=== PATIENT | male | born 1955 | race Caucasian/White ===

== ENCOUNTER 2017-05-25 16:35 | Inpatient (IN) ==
[2017-05-25] MEDS ORDERED: Piperacillin/Tazobactam 4.5 GM in D5% in Water (Mini-Bag+) 100 ML IVPB ONE (19:26)
[2017-05-25] MEDS ORDERED: Clindamycin 600 MG/50 ML 600 MG/50 ML IV.SOLN IVPB STA (19:46)
[2017-05-25 19:56] LABS: Basophils % 0.2 %; Eosinophils % 0.6 %; Immature Granulocytes % 1.5 % (0-4); Mean Corpuscular HGB Conc 28.9 g/dL (31.6-35.5)
[2017-05-25 19:58] LABS: Eosinophils # 0.1 K/mcL (0.0-0.6); Hematocrit 27.7 % (37.5-50.1); Lymphocytes # 0.9 K/mcL (0.6-4.6); Lymphocytes % 8.9 %; Mean Corpuscular Hemoglobin 25.5 pg (28.0-33.3); Mean Corpuscular Volume 88.2 fL (83.0-100.0); Mean Platelet Volume 10.4 fL (9.4-12.4); Monocytes # 0.5 K/mcL (0.0-1.3); Monocytes % 5.4 %; Platelet Count 179 K/mcL (140-400); Red Blood Count 3.14 M/mcL (4.19-5.50); Red Cell Distribution Width 19.2 % (11.5-14.5); Segmented Neutrophils % 83.4 %
[2017-05-25] MEDS ORDERED: Vancomycin 1,500 MG in D5% in Water 250 ML IVPB SCH (20:00)
[2017-05-25 20:04] LABS: Albumin 2.1 g/dL (3.5-5.0); Albumin/Globulin Ratio 0.4 (1.1-2.2); Bilirubin,Direct 1.2 mg/dL (0.0-0.5); Bilirubin,Indirect 0.5 mg/dL (0.0-1.2); Bilirubin,Total 1.7 mg/dL (0.2-1.2); Calcium 8.4 mg/dL (8.6-10.8); Globulin 5.1 g/dL (2.4-3.5); Magnesium 1.6 mg/dL (1.6-2.6); Phosphorous 2.6 mg/dL (2.3-4.7); Potassium 2.7 mEq/L (3.5-4.5); Total Protein 7.2 g/dL (6.0-8.3)
[2017-05-25 20:19] LABS: Hypochromasia Present (Not Present)
[2017-05-25 20:20] LABS: Anisocytosis 1+ (Not Present); Platelet Estimate Normal (Normal)
[2017-05-25 20:29] LABS: ABG Base Excess 12.8 mEq/L (-2.0 to 3.0); ABG HCO3 35.2 mEQ/L (21-27); ABG Oxygen Saturation 98 % (95-98); ABG PCO2 35 mmHg (35-45); ABG PO2 86 mmHg (85-104); ABG TCO2 36.3 mEq/L (20-26)
[2017-05-25 20:30] LABS: Blood Gas FiO2 21 %
[2017-05-25 20:31] LABS: ABG PH 7.61 pH Units (7.32-7.45)
[2017-05-25] MEDS: 0.9 % Sodium Chloride 1,000 ML IVC SCH ×2 (20:33→23:48)
[2017-05-25 20:37] LABS: INR 1.6; Prothrombin Time 17.6 Seconds (9.4-12.1)
[2017-05-25 20:40] LABS: Activated Partial Thrombo Time 28.5 Seconds (26.0-36.0)
--- NOTE | 2017-05-25 21:27 | Emergency Department Note ---
Disposition Clinical Impression: Diabetic ulcer of foot associated with type 2 diabetes mellitus, with necrosis of bone Qualifiers: Diabetic foot ulcer location: heel Laterality: unspecified laterality Qualified Code(s): E11.621 - Type 2 diabetes mellitus with foot ulcer Disposition: Home, Self-Care Condition: Good Referrals: NO,PCP [Primary Care Provider] - Forms: ED Satisfaction Letter Extremity Problem HPI - General Chief complaint: ED Extremity Problem,Nontraumatic Stated complaint: wounds on bilat feet Time Seen by Provider: 05/25/17 19:20 Source: patient, family Limitations: no limitations Nursing Notes Reviewed: Yes Vital Signs Reviewed: Yes - History of Present Illness HPI Narrative: Male patient with end-stage renal disease as well as diabetes with chronic diabetic ulcers to the feet. Now presents with concern for necrosis to the heels bilaterally. His vital signs are stable on arrival. His family reports that his feet have been getting worse over the past week. He does follow with a sedimentationist at [facility]. He denies chest pain, dyspnea, lower extremity pain. He has had duplex is performed previously to evaluate for vascular insult. Pain Scale: 0 - Related Data Home Medications Medication Instructions Recorded Confirmed Doxycycline [Doxycycline] 100 mg PO BID 05/25/17 05/25/17 Lidocaine/Prilocaine [Emla] 1 appl TP AD PRN 05/25/17 05/25/17 Allergies Allergy/AdvReac Type Severity Reaction Status Date / Time vancomycin Allergy See Verified 04/29/16 06:56 Comments All systems ED: reviewed and negative except as stated. Past Medical History - Past Medical History Medical history: Reports: diabetes, hypertension, other Surgical history: Reports: coronary bypass (CABG), other Psychiatric history: Reports: anxiety, depression - Social History Smoking Status: Former smoker Smokeless Tobacco Status: No Alcohol use: Reports: none Drug use: Reports: none Physical Exam There is necrosis in a circular fashion over both feet at the heels.. There is ulcers on the feet. - General Limitations: no limitations General appearance: alert, in no apparent distress - Head Head exam: atraumatic - Eye Eye exam: Present: normal appearance - ENT ENT exam: normal exam, normal oropharynx - Neck Neck exam: Present: normal inspection, full ROM - Chest Chest inspection: Present: normal inspection - Respiratory Respiratory exam: Present: normal lung sounds bilaterally - Cardiovascular Cardiovascular exam: Present: regular rate, normal rhythm - Abdominal Exam Abdominal exam: Present: soft, Non-Tender - Male exam: Present: normal inspection - Extremities Exam Extremities exam: Present: normal inspection, full ROM - Expanded Lower Extremity Exam Hip/Pelvis exam: Present: normal inspection, full ROM Upper leg exam: Present: normal inspection, full ROM Knee exam: Present: normal inspection, full ROM Lower leg exam: Present: normal inspection, full ROM Ankle exam: Present: normal inspection, full ROM Foot/toe exam: Present: normal inspection, full ROM Neurovascular/Tendon exam: Present: normal capillary refill, pulse deficit Gait: observed and normal, not tested/not observed - Back Exam Back exam: Present: normal inspection, full ROM - Neurological Exam Neurological exam: Present: alert, oriented X3, CN II-XII intact - Psychiatric Psychiatric exam: Present: normal affect, normal mood - Skin Skin exam: Present: warm, dry Course Vital Signs Temperature 98.2 F 05/25/17 16:52 Pulse Rate 82 05/25/17 16:52 Respiratory Rate 18 05/25/17 16:52 Blood Pressure 125/58 05/25/17 16:52 O2 Sat by Pulse Oximetry 99 05/25/17 16:52 Temperature 98.2 F 05/25/17 16:52 Pulse Rate 84 05/25/17 20:36 Respiratory Rate 18 05/25/17 20:36 Blood Pressure 138/69 05/25/17 20:36 O2 Sat by Pulse Oximetry 97 05/25/17 20:36 Oxygen Delivery Oxygen Delivery Room Air Extremity Problem, Nontraumati - MDM Narrative Medical decision making narrative: Male patient with necrotic and possibly gangrenous heels bilaterally. There are Doppler pulses present over the dorsalis pedis and posterior tibial. X-ray show evidence of osteomyelitis of the toe. There is no evidence of gas or air. I did discuss the case with the on-call sedimentationist. I did start broad- spectrum antibiotics. He was given IV fluids for significant contracture alkalosis. He does have hypokalemia and I did correct this gently given his underlying renal dysfunction. I would proceed with admission for evaluation of both sepsis as well as necrosis to the lower extremities. I do suspect an infectious etiology however I cannot completely exclude vascular etiology however there are good pulses palpable over both feet. I did consult the on-call family lawyer. I have consult to nephrology formally. I will give a dose of Diamox for metabolic alkalosis. The patient was given IV fluids. It possible this is contracture alkalosis but is also possible that this is related to diarrheal loss. - Medical Records Medical records reviewed: Yes I reviewed the patient's medical records. - Lab Data Lab results reviewed: Yes I reviewed the patient's lab results. Result diagrams: 05/25/17 19:41 05/25/17 19:41 Lab Results 05/25/17 05/25/17 05/25/17 Range/Units 19:41 19:41 19:41 WBC 9.6 (4.3-11.1) K/mcL RBC 3.14 L (4.19-5.50) M/mcL Hgb 8.0 L (12.9-16.9) g/dL Hct 27.7 L (37.5-50.1) % MCV 88.2 (83.0-100.0) fL MCH 25.5 L (28.0-33.3) pg MCHC 28.9 L (31.6-35.5) g/dL RDW 19.2 H (11.5-14.5) % Plt Count 179 (140-400) K/mcL MPV 10.4 (9.4-12.4) fL Immature Gran % 1.5 (0-4) % Seg Neutrophils % 83.4 % Lymphocytes % 8.9 % Monocytes % 5.4 % Eosinophils % 0.6 % Basophils % 0.2 % Neutrophils # 8.0 (1.6-8.9) K/mcL Lymphocytes # 0.9 (0.6-4.6) K/mcL Monocytes # 0.5 (0.0-1.3) K/mcL Eosinophils # 0.1 (0.0-0.6) K/mcL Basophils # 0.0 (0.0-0.2) K/mcL Platelet Estimate Normal (Normal) Hypochromasia Present A (Not Present) Anisocytosis 1+ A (Not Present) PT 17.6 H (9.4-12.1) Seconds INR 1.6 APTT 28.5 (26.0-36.0) Seconds ABG pH (7.32-7.45) pH Units ABG pCO2 (35-45) mmHg ABG pO2 (85-104) mmHg ABG HCO3 (21-27) mEQ/L ABG Total CO2 (20-26) mEq/L ABG O2 Saturation (95-98) % ABG Base Excess (-2.0 to 3.0) mEq/L Blood Gas Modality Inspired O2 % Sodium 134 L (136-145) mEq/L Potassium 2.7 L (3.5-4.5) mEq/L Chloride 92 L (98-109) mEq/L Carbon Dioxide 32 H (19-29) mEq/L BUN 29 H (8-26) mg/dL Creatinine 4.71 H (0.72-1.25) mg/dL Est GFR ( Amer) 15 L (> 60) Est GFR (Non-Af Amer) 13 L (> 60) BUN/Creatinine Ratio 6 (6-26) Glucose 229 H (70-99) mg/dL Calculated Osmolality 291 (280-300) Lactic Acid (0.5-2.2) mmol/L Calcium 8.4 L (8.6-10.8) mg/dL Phosphorus 2.6 (2.3-4.7) mg/dL Magnesium 1.6 (1.6-2.6) mg/dL Total Bilirubin 1.7 H (0.2-1.2) mg/dL Direct Bilirubin 1.2 H (0.0-0.5) mg/dL Indirect Bilirubin 0.5 (0.0-1.2) mg/dL AST 10 (5-34) Units/L ALT 6 (0-55) Units/L Alkaline Phosphatase 80 (38-126) Units/L Troponin I (0-0.03) ng/mL Serum Total Protein 7.2 (6.0-8.3) g/dL Albumin 2.1 L (3.5-5.0) g/dL Globulin 5.1 H (2.4-3.5) g/dL Albumin/Globulin Ratio 0.4 L (1.1-2.2) 05/25/17 05/25/17 05/25/17 Range/Units 19:41 19:41 20:18 WBC (4.3-11.1) K/mcL RBC (4.19-5.50) M/mcL Hgb (12.9-16.9) g/dL Hct (37.5-50.1) % MCV (83.0-100.0) fL MCH (28.0-33.3) pg MCHC (31.6-35.5) g/dL RDW (11.5-14.5) % Plt Count (140-400) K/mcL MPV (9.4-12.4) fL Immature Gran % (0-4) % Seg Neutrophils % % Lymphocytes % % Monocytes % % Eosinophils % % Basophils % % Neutrophils # (1.6-8.9) K/mcL Lymphocytes # (0.6-4.6) K/mcL Monocytes # (0.0-1.3) K/mcL Eosinophils # (0.0-0.6) K/mcL Basophils # (0.0-0.2) K/mcL Platelet Estimate (Normal) Hypochromasia (Not Present) Anisocytosis (Not Present) PT (9.4-12.1) Seconds INR APTT (26.0-36.0) Seconds ABG pH 7.61 H* (7.32-7.45) pH Units ABG pCO2 35 (35-45) mmHg ABG pO2 86 (85-104) mmHg ABG HCO3 35.2 H (21-27) mEQ/L ABG Total CO2 36.3 H (20-26) mEq/L ABG O2 Saturation 98 (95-98) % ABG Base Excess 12.8 H (-2.0 to 3.0) mEq/L Blood Gas Modality RA Inspired O2 21 % Sodium (136-145) mEq/L Potassium (3.5-4.5) mEq/L Chloride (98-109) mEq/L Carbon Dioxide (19-29) mEq/L BUN (8-26) mg/dL Creatinine (0.72-1.25) mg/dL Est GFR ( Amer) (> 60) Est GFR (Non-Af Amer) (> 60) BUN/Creatinine Ratio (6-26) Glucose (70-99) mg/dL Calculated Osmolality (280-300) Lactic Acid 1.5 (0.5-2.2) mmol/L Calcium (8.6-10.8) mg/dL Phosphorus (2.3-4.7) mg/dL Magnesium (1.6-2.6) mg/dL Total Bilirubin (0.2-1.2) mg/dL Direct Bilirubin (0.0-0.5) mg/dL Indirect Bilirubin (0.0-1.2) mg/dL AST (5-34) Units/L ALT (0-55) Units/L Alkaline Phosphatase (38-126) Units/L Troponin I 0.35 H* (0-0.03) ng/mL Serum Total Protein (6.0-8.3) g/dL Albumin (3.5-5.0) g/dL Globulin (2.4-3.5) g/dL Albumin/Globulin Ratio (1.1-2.2)
[2017-05-25] MEDS ORDERED: acetaZOLAMIDE 250 MG TABLET PO ONE (21:38)
--- NOTE | 2017-05-25 22:01 | Internal Med History&Physical ---
Date of Encounter: 05/26/17 Time of Encounter: 21:57 Assessment and Plan (1) Osteomyelitis Current visit: Yes Status: Acute has b.l non healing chronic ulcers most likely diabetic foot ulcers. xray of left foot shows signs of osteomyelitis will start IV antibiotics, wound cx and blood cx send ESR. will consult ID and podiatry, may need amputation. Qualifiers: Osteomyelitis type: unspecified type Osteomyelitis location: foot Laterality: left Qualified Code(s): M86.9 - Osteomyelitis, unspecified (2) Elevated troponin Current visit: Yes Status: Acute most likely in the setting of ESRD, he denies any chest pain and no EKG changes will trend tropx3, less likely ACS at this time (3) ESRD (end stage renal disease) on dialysis Current visit: Yes Status: Acute his HD days are Thursday and Thursday. Will consult renal for maintenance hemodialysis. (4) Hypokalemia Current visit: Yes Status: Acute Patient noted to be 2.7, has been supplemented at ED with IV and oral production. Will recheck Chem-7 tomorrow morning. (5) CAD (coronary artery disease) Current visit: Yes Status: Acute History of CABG. Denies any chest pain, elevated trop possible in the setting of ESRD and HD. will continue home medications. Qualifiers: Coronary Disease-Associated Artery/Lesion type: bypass graft [place] vs. transplanted heart: [place] heart Associated angina: without angina Qualified Code(s): I25.810 - Atherosclerosis of coronary artery bypass graft(s) without angina pectoris (6) Diabetic ulcer of foot associated with type 2 diabetes mellitus, with necrosis of bone Current visit: Yes Status: Acute monitro fsg, will continue insulin sliding and levemir. Qualifiers: Diabetic foot ulcer location: heel Laterality: unspecified laterality Qualified Code(s): E11.621 - Type 2 diabetes mellitus with foot ulcer; L97.404 - Non-pressure chronic ulcer of unspecified heel and midfoot with necrosis of bone (7) Anemia Current visit: Yes Status: Acute anemia 2/2 ESRD with anemia of chronic disease. Qualifiers: Qualified Code(s): D64.9 - Anemia, unspecified Internal Medicine - H&P: HPI Chief complaint: foul smelling legs Admitted From: Home Plans for Post Hospital Care: Home History of present illness: Mr. Chan is a 62 year old male with PMH of HTN, CAD, ESRD on HD, chronic diabetic foot ulcers for which he follows with the wound care and for her. He presented today with complaints of foul-smelling discharge from the ulcers of both of his feet. He reports that the doctor he was seen went for a vacation, he reports that he was on oral antibiotics at home for possible osteomyelitis and was told that he might need amputation of the left great toe. He denies any nausea, vomiting, fever at home. He reports diminished sensation of both of his feet which is chronic. He reports some mild puslike discharge from the wound at the bulb of the great toe. He denies any chest pain, shortness of breath, reports had his regular dialysis today. X-ray of the foot done at ED shows signs of osteomyelitis of the left great toe. 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 Past Med Surg Social Fam HX - Past Medical History Medical history: diabetes, hypertension, other Psychiatric history: anxiety, depression - Past Surgical History Surgical History: coronary bypass (CABG), other - Social History Smoking Status: Former smoker Smokeless Tobacco Status: No Alcohol use: none Drug use: none - Family History Mother Hx Family Endocrine Disorder: Yes (Diabetes) Internal Medicine - H&P: Meds Doxycycline [Doxycycline] 100 mg PO BID 05/25/17 [History] Lidocaine/Prilocaine [Emla] 1 appl TP AD PRN 05/25/17 [History] Allergies vancomycin Allergy (Verified 04/29/16 06:56) See Comments kidney failure All Systems PM: A 10-system review of systems was performed and is negative for pertinent findings except as documented above in the HPI. - Constitutional Constitutional: as per HPI - EENT Eyes: as per HPI Ears: as per HPI Nose, mouth and throat: as per HPI - Breasts Breasts: as per HPI - Cardiovascular Cardiovascular ROS IM: as per HPI - Respiratory Respiratory: as per HPI - Gastrointestinal Gastrointestinal: as per HPI - Genitourinary Genitourinary ROS male: as per HPI - Musculoskeletal Musculoskeletal ROS IM: as per HPI - Integumentary Integumentary IM: as per HPI - Neurological Neurological ROS: as per HPI - Constitutional Vitals: Temp Pulse Resp BP Pulse Ox 98.2 F 84 18 138/69 97 05/25/17 16:52 05/25/17 20:36 05/25/17 20:36 05/25/17 20:36 05/25/17 20:36 General appearance: Present: A&O X 3, no acute distress Exam: neck- supple chest- b/l clear, no added sounds CVS-s1 and s2, no mr//g abd-soft, non tender, bs are present ext- b/l lower leg edema, chronic ulcers at both the heels of his feet, decreased pedal edema,feels warm to touch but has ddecreased senstation b/l, also has ulcer at the bulb of the left great toe and the right, both appear to be deep with bone exposure, foul smelling discharge. neuro- alert and awake and no focal defecits. Internal Med - H&P Results - Labs CBC & Chem 7: 05/25/17 19:41 05/25/17 19:41
[2017-05-25] MEDS ORDERED: Naloxone 0.4 MG/ML INJ IVP PRN (22:12)
[2017-05-26 05:20] LABS: Calcium 7.6 mg/dL (8.6-10.8); Chol/HDL Ratio 6.3 (0-4.9); Magnesium 1.4 mg/dL (1.6-2.6); Phosphorous 3.6 mg/dL (2.3-4.7); Potassium 3.1 mEq/L (3.5-4.5)
[2017-05-26] MEDS ORDERED: Vancomycin 1,000 MG in D5% in Water 250 ML IVPB SCH (06:00)
[2017-05-26] MEDS: *HR* Heparin 5,000 UNIT/ML VIAL SQ SCH ×2 (06:07→17:53)
[2017-05-26 06:08] LABS: Basophils % 0.2 %; Eosinophils # 0.2 K/mcL (0.0-0.6); Hematocrit 21.4 % (37.5-50.1); Immature Granulocytes % 1.5 % (0-4); Immature Platelets 2.5 % (1.1-6.1); Lymphocytes # 1.1 K/mcL (0.6-4.6); Mean Corpuscular Hemoglobin 25.9 pg (28.0-33.3); Mean Corpuscular Volume 89.5 fL (83.0-100.0); Mean Platelet Volume 10.5 fL (9.4-12.4); Monocytes # 0.6 K/mcL (0.0-1.3); Monocytes % 6.7 %; Platelet Count 143 K/mcL (140-400); Red Blood Count 2.39 M/mcL (4.19-5.50); Segmented Neutrophils % 76.6 %
[2017-05-26 06:13] LABS: Neutrophils # 6.3 K/mcL (1.6-8.9)
[2017-05-26 06:17] LABS: Hemoglobin 6.2 g/dL (12.9-16.9)
[2017-05-26 06:25] LABS: Anisocytosis 1+ (Not Present); Platelet Estimate Normal (Normal)
[2017-05-26] MEDS ORDERED: Piperacillin/Tazobactam 3.375 GM in D5% in Water (Mini-Bag+) 100 ML IVPB SCH (07:00)
[2017-05-26] MEDS ORDERED: Clindamycin 600 MG/50 ML 600 MG/50 ML IV.SOLN IVPB SCH (08:00)
[2017-05-26 08:29] LABS: Basophils % 0.2 %; Lymphocytes % 13.6 %; Mean Corpuscular HGB Conc 28.9 g/dL (31.6-35.5)
[2017-05-26 08:31] LABS: Eosinophils # 0.2 K/mcL (0.0-0.6); Hematocrit 23.5 % (37.5-50.1); Hemoglobin 6.8 g/dL (12.9-16.9); Immature Granulocytes % 1.6 % (0-4); Immature Platelets 2.9 % (1.1-6.1); Lymphocytes # 1.2 K/mcL (0.6-4.6); Mean Corpuscular Hemoglobin 25.8 pg (28.0-33.3); Mean Platelet Volume 10.9 fL (9.4-12.4); Monocytes # 0.5 K/mcL (0.0-1.3); Monocytes % 5.6 %; Platelet Count 162 K/mcL (140-400); Red Blood Count 2.64 M/mcL (4.19-5.50); Red Cell Distribution Width 19.2 % (11.5-14.5)
[2017-05-26 08:36] LABS: Neutrophils # 6.9 K/mcL (1.6-8.9)
[2017-05-26 08:51] LABS: Anisocytosis 1+ (Not Present)
[2017-05-26 08:52] LABS: Hypochromasia Present (Not Present); Platelet Estimate Normal (Normal)
[2017-05-26] MEDS ORDERED: Furosemide 20 MG/2 ML VIAL IVP ONE (10:40)
--- NOTE | 2017-05-26 11:14 | Nephrology Consult Note ---
<Josy Rogers - Last Filed: 05/26/17 11:26> Date of Encounter: 05/26/17 Time of Encounter: 11:09 Assessment and Plan (1) ESRD (end stage renal disease) on dialysis Status: Acute Will plan for HD tomorrow Need strict I/Os-ordered Renal diet-ordered Avoid nephrotoxins if possible (2) Osteomyelitis Status: Acute per podiatry and ID teams Qualifiers: Osteomyelitis type: unspecified type Osteomyelitis location: foot Laterality: left Qualified Code(s): M86.9 - Osteomyelitis, unspecified (3) Anemia Status: Acute Hgb 6.8; primary team ordering 1 unit PRBC Goal hgb 10-11 Will give Aranesp 100mcg with dialysis treatments Qualifiers: Anemia type: unspecified type Qualified Code(s): D64.9 - Anemia, unspecified; D63.1 - Anemia in chronic kidney disease (4) Hypokalemia Status: Acute Improved from 2.7 to 3.1 today. Monitor closely History of Present Illness - Reason for Consult Consult date: 05/26/17 - Chief Complaint osteomyelitis, ESRD on HD, hypokalemia - History of Present Illness Mr. Chan is a 62 year old male well known to our practice with PMH of HTN, CAD, ESRD on HD at [facility], chronic diabetic foot ulcers for which he follows with the wound care. He presented with complaints of foul-smelling discharge from the ulcers of both of his feet. Patient reports that he was on oral antibiotics at home for possible osteomyelitis and was told that he might need amputation of the left great toe. X-ray of the foot done in ED shows signs of osteomyelitis of the left great toe. Nephrology has been consulted to manage his dialysis while hospitalized. Patient is ordered HD on ,, however he feels he only needs treatments twice a week so only comes to dialysis on Mondays and Fridays. Patient missed his treatment on Thursday because of complaint of diarrhea but did go for treatment yesterday where he received a full HD treatment. Past Med Surg Social Fam HX - Past Medical History Medical history: diabetes, hypertension, renal disease, other Psychiatric history: anxiety, depression - Past Surgical History Surgical History: coronary bypass (CABG), other - Social History Smoking Status: Former smoker Smokeless Tobacco Status: No Alcohol use: none Drug use: none - Family History Mother Hx Family Endocrine Disorder: Yes (Diabetes) Medications and Allergies Doxycycline [Doxycycline] 100 mg PO BID 05/25/17 [History] Lidocaine/Prilocaine [Emla] 1 appl TP AD PRN 05/25/17 [History] Allergies vancomycin Adverse Reaction (Verified 05/26/17 14:42) See Comments SARAH/Red Man Syndrome Review of Systems All Systems: reviewed and no additional remarkable complaints except as stated Constitutional: no chills, no fever(s) Cardiovascular: edema, pedal edema, no chest pain, no dyspnea Respiratory: no cough, no dyspnea Gastrointestinal: diarrhea, no nausea, no vomiting Integumentary: non-healing lesions (feet), skin ulcer, sores Neurological: no behavioral changes, no confusion Exam - Vital Signs Vital signs: Initial Vital Signs Temp Pulse Resp BP Pulse Ox 98.2 F 82 18 125/58 99 05/25/17 16:52 05/25/17 16:52 05/25/17 16:52 05/25/17 16:52 05/25/17 16:52 Vital Signs - Last 8 Hours Temp Pulse Resp BP Pulse Ox 05/26/17 10:31 97.6 F 78 16 124/69 94 05/26/17 09:16 97 05/26/17 06:36 98.2 F 71 16 130/61 97 05/26/17 05:01 98.3 F 66 16 122/57 98 Intake and Output 05/25/17 05/26/17 05/26/17 23:59 07:59 15:59 Intake Total 250 / 250 120 / 120 Output Total 0 / 0 Balance 250 / 250 120 / 120 Intake: IV Fluids 250 / 250 Cleocin Premix 600 MG/50 50 / 50 ML 600 mg In 50 ml @ 50 mls/hr IVPB NOW STA Rx#: [id number] Zosyn 4.5 GM In Dextrose 100 / 100 5% (Minibag+) 100 ML 100 ML @ 100 mls/hr IVPB ONCE ONE Rx#:[id number] Potassium Chloride 10 mEq 100 / 100 /100mL 10 meq In 100 ml @ 100 mls/hr IVPB Q1H BENNY Rx#:[id number] Oral 120 / 120 Output: Urine 0 / 0 Other: Meal Breakfast Percent of Meal Consumed 100% Stool Size Small Stool Consistency loose liquid Stool Color Brown # Bowel Movements 1 Weight 83.3 kg Blood Glucose* 192 - General Appearance General appearance: well-developed, frail EENT: ATNC, mucous membranes moist, hearing intact, vision intact Neck: supple Respiratory: clear Cardiology: edema (mild BLL edema), normal S1, normal S2 Gastrointestinal: no tenderness, no guarding Integumentary: warm and dry, ulcer (heels/toes) Neurologic: alert and oriented x3 Psychiatric: mood/affect appropriate, cooperative Results - Lab Results 05/26/17 08:07 05/26/17 04:37 Most recent lab results ABG pH 7.61 pH Units (7.32-7.45) H* 05/25/17 20:18 ABG pCO2 35 mmHg (35-45) 05/25/17 20:18 ABG pO2 86 mmHg (85-104) 05/25/17 20:18 ABG HCO3 35.2 mEQ/L (21-27) H 05/25/17 20:18 ABG O2 Saturation 98 % (95-98) 05/25/17 20:18 Calcium 7.6 mg/dL (8.6-10.8) L 05/26/17 04:37 Phosphorus 3.6 mg/dL (2.3-4.7) 05/26/17 04:37 Magnesium 1.4 mg/dL (1.6-2.6) L 05/26/17 04:37 Consult Discharge Plan - Plan Instructions: Chronic Kidney Disease (GEN), Osteomyelitis (GEN), Diabetes Mellitus Type 2 in Adults (DC) Referrals: Jarad Galeana MD [Primary Care Provider] - 06/02/17 10:00 am <Tori Car - Last Filed: 06/08/17 17:33> Date of Encounter: 05/26/17 Exam - Vital Signs Vital signs: Initial Vital Signs Temp Pulse Resp BP Pulse Ox 98.2 F 82 18 125/58 99 05/25/17 16:52 05/25/17 16:52 05/25/17 16:52 05/25/17 16:52 05/25/17 16:52 Results - Lab Results 06/01/17 08:31 06/01/17 03:47 Most recent lab results ABG pH 7.61 pH Units (7.32-7.45) H* 05/25/17 20:18 ABG pCO2 35 mmHg (35-45) 05/25/17 20:18 ABG pO2 86 mmHg (85-104) 05/25/17 20:18 ABG HCO3 35.2 mEQ/L (21-27) H 05/25/17 20:18 ABG O2 Saturation 98 % (95-98) 05/25/17 20:18 Calcium 7.6 mg/dL (8.6-10.8) L 06/01/17 03:47 Phosphorus 3.6 mg/dL (2.3-4.7) 05/26/17 04:37 Magnesium 1.4 mg/dL (1.6-2.6) L 05/26/17 04:37 - Attending Attestation I examined this patient and my medical decision-making was reviewed with the Resident Physician. I agree with the documented findings, disposition and treatment plan as described except to the extent set forth below. Pt seen and examined presenting with foul smelling foot ulcers along with persistent diarrhea causing hypokalemia with contraction alkalosis. He was also noted to be quite anemic as well and edematous on both LE extremities. Will pursue HD if pt agrees as he does not a histor of noncompliance with his HD session even though he has ESRD and requires HD . Goal of HD would be clearance mostly and when able UF as well. Abx per primary team and wound care referral as well
[2017-05-26] MEDS ORDERED: 0.9 % Sodium Chloride 250 ML ONE (11:37)
--- NOTE | 2017-05-26 14:07 | Internal Med Progress Note ---
<Isael Eason - Last Filed: 05/26/17 15:57> Date of Encounter: 05/26/17 Time of Encounter: 09:45 - Assessment and plan (1) Diabetic ulcer of foot associated with type 2 diabetes mellitus, with necrosis of bone Current Visit: Yes Status: Acute Assessment and plan: The patient has bilateral, nonhealing chronic ulcers on his foot, most likely related to diabetes. X-ray of his left foot shows signs of osteomyelitis. Patient was started on Zosyn and clindamycin. Patient has had an adverse reaction to vancomycin in the past. May need amputation. Qualifiers: Diabetic foot ulcer location: heel Laterality: unspecified laterality Qualified Code(s): E11.621 - Type 2 diabetes mellitus with foot ulcer; L97.404 - Non-pressure chronic ulcer of unspecified heel and midfoot with necrosis of bone (2) Osteomyelitis Current Visit: Yes Status: Acute Assessment and plan: Findings on x-ray of patient's feet reveals evidence of osteomyelitis in the left foot. Qualifiers: Osteomyelitis type: unspecified type Osteomyelitis location: foot Laterality: left Qualified Code(s): M86.9 - Osteomyelitis, unspecified (3) Anemia Current Visit: Yes Status: Acute Assessment and plan: Patient has anemia, most likely due to his chronic renal disease. -Patient states that his baseline hemoglobin is approximately 8. -His hemoglobin today was 6.2. One unit of blood was given. Qualifiers: Anemia type: due to chronic kidney disease Chronic kidney disease stage: unspecified stage Qualified Code(s): N18.9 - Chronic kidney disease, unspecified; D63.1 - Anemia in chronic kidney disease (4) ESRD (end stage renal disease) on dialysis Current Visit: Yes Status: Chronic Assessment and plan: Patient is scheduled to have dialysis tomorrow. -Patient states that he has dialysis 3 days per week. -He states that he has noticed several dialysis appointments recently due to an illness. (5) Hypokalemia Current Visit: Yes Status: Acute Assessment and plan: Patient noticed to have low potassium. -He was supplemented in the emergency department. -Patient's potassium this morning was 3.1. - Time Spent With Patient Greater than 35 minutes - Subjective Interval history: Patient was seen and examined this morning. He states that he came into the hospital because the wounds on both of his feet are producing foul odor. He denies having any pain in his feet. He states that he has numbness in both lower extremities, states that he cannot feel any pain on the bottom of his feet. He currently denies having any fever, chills, nausea, vomiting, weakness , or fatigue. Patient has no complaints at this time. - Constitutional Vitals: Temp Pulse Resp BP Pulse Ox 97.2 F L 73 17 114/66 100 05/26/17 12:07 05/26/17 12:07 05/26/17 12:07 05/26/17 12:07 05/26/17 12:07 General appearance: Present: A&O X 3, no acute distress - Head Head exam: Present: normal inspection, normocephalic - ENT ENT exam: Present: mucous membranes moist - Respiratory Respiratory exam: Present: CTAB. Absent: accessory muscle use, rales, rhonchi, wheezes - Cardiovascular Cardiovascular exam: Present: RRR, +S1, +S2. Absent: diastolic murmur, gallop, rubs, systolic murmur - Expanded Lower Extremities Exam Foot/Toe exam: Present: deformity (Patient has bilateral nonhealing chronic ulcers, most likely related to diabetes.) Internal Medicine: Result - Labs CBC & Chem 7: 05/26/17 08:07 05/26/17 04:37 Labs: Short CBC 05/26/17 05/26/17 Range/Units 05:55 08:07 WBC 8.2 8.9 (4.3-11.1) K/mcL Hgb 6.2 L D 6.8 L (12.9-16.9) g/dL Hct 21.4 L 23.5 L (37.5-50.1) % Plt Count 143 162 (140-400) K/mcL Neutrophils # 6.3 6.9 (1.6-8.9) K/mcL BMP 05/26/17 04:37 Sodium 133 L Potassium 3.1 L Chloride 95 L Carbon Dioxide 31 H BUN 33 H Creatinine 4.85 H Glucose 180 H Calcium 7.6 L - ABG Interpretation ABG results: ABG ABG pH 7.61 pH Units (7.32-7.45) H* 05/25/17 20:18 ABG pCO2 35 mmHg (35-45) 05/25/17 20:18 ABG pO2 86 mmHg (85-104) 05/25/17 20:18 ABG O2 Saturation 98 % (95-98) 05/25/17 20:18 PT/INR, D-dimer PT 17.6 Seconds (9.4-12.1) H 05/25/17 19:41 Consult Discharge Plan - Plan Referrals: Jarad Galeaan MD [Primary Care Provider] - <Nii Mcghee T - Last Filed: 05/26/17 16:27> Date of Encounter: 05/26/17 - Constitutional Vitals: Temp Pulse Resp BP Pulse Ox 97.9 F 73 16 146/79 99 05/26/17 15:25 05/26/17 15:25 05/26/17 15:25 05/26/17 15:25 05/26/17 15:25 Internal Medicine: Result - Labs CBC & Chem 7: 05/26/17 08:07 05/26/17 04:37 Labs: Short CBC 05/26/17 05/26/17 Range/Units 05:55 08:07 WBC 8.2 8.9 (4.3-11.1) K/mcL Hgb 6.2 L D 6.8 L (12.9-16.9) g/dL Hct 21.4 L 23.5 L (37.5-50.1) % Plt Count 143 162 (140-400) K/mcL Neutrophils # 6.3 6.9 (1.6-8.9) K/mcL BMP 05/26/17 04:37 Sodium 133 L Potassium 3.1 L Chloride 95 L Carbon Dioxide 31 H BUN 33 H Creatinine 4.85 H Glucose 180 H Calcium 7.6 L - ABG Interpretation ABG results: ABG ABG pH 7.61 pH Units (7.32-7.45) H* 05/25/17 20:18 ABG pCO2 35 mmHg (35-45) 05/25/17 20:18 ABG pO2 86 mmHg (85-104) 05/25/17 20:18 ABG O2 Saturation 98 % (95-98) 05/25/17 20:18 PT/INR, D-dimer PT 17.6 Seconds (9.4-12.1) H 05/25/17 19:41 - Attending Attestation I examined this patient and my medical decision-making was reviewed with the Resident Physician on 05/26/17. I agree with the documented findings, disposition and treatment plan as described except to the extent set forth below. Mr. Chan has a PMH of ESRD on HD, not compliant with HD or medicatins, DM with chroid DM foot ulcers, PAD, CAD, chronic anemia on EPO He is admitted and being managed for Right toe OM, and necrotic bilateral heel ulcers that are suspected to be infected On exam,patient is cachectic and in no form of distress, chest ia CTAB, lower extremities with bilateral necrotic heel ulcers, fluctaunt, not tender , mild surrounding erythea, Right big toe with punched out wound draining foul- smelling discharge, Right great toe with healed ulcer, Right plantar surface with a smaller necrotic ulcer. Pulses are present but diminished labs and Imaging reviewed Agree with Blaze/Geoffrey, d/c clinda, Infectious disease , renal, podiatry evaluation, follow recommendations, start insulin, reconcile home meds Patient initially refused blood transfusion for his anemia, but eventually agreed with one unit transfusion, monitor HB Rest of details as in resident's documentation
--- NOTE | 2017-05-26 14:08 | Infectious Disease Consult ---
Date of Encounter: 05/26/17 Time of Encounter: 14:08 Assessment and Plan (1) Osteomyelitis Status: Acute Assessment and plan: Location: Left foot, great toe. Causative organism unclear. X-ray of the left foot shows great toe osteomyelitis. The patient has no sepsis criteria. Podiatry has been consulted. Await their recommendations. Check ESR and CRP. Get blood cultures x 2 sets now. Given that the patient has no sepsis criteria and is clinically stable, hold further antibiotics until seen by Podiatry. Get wound culture of the left great toe. Await further recommendations from Podiatry. If the patient declines or becomes toxic, start broad-spectrum antibiotics. 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 Since the patient is now HD-dependent, we can probably consider trialing vancomyin if needed but will ask pharmacy to slow down the rate of infusion given the patient 's history of Mo syndrome. Would recommend starting Zosyn as well. Wound care and activity restrictions as outlined by the primary team. Duration of treatment depends on the clinical picture. Monitor renal function and dose-adjust antibiotics. Qualifiers: Osteomyelitis type: unspecified type Osteomyelitis location: foot Laterality: left Qualified Code(s): M86.9 - Osteomyelitis, unspecified (2) Diabetic ulcer of foot associated with type 2 diabetes mellitus, with necrosis of bone Status: Acute Assessment and plan: Etiology not entirely clear --> infection, PAD, other. The patient states he has had vascular studies previously. Will request these records, but may need to consider repeating if not done recently. Await wound care recommendations from the podiatry team. Check HgbA1C. Recommend aggressive glucose monitoring and control to promote wound healing and prevent reinfection. Management per the primary team. Qualifiers: Diabetic foot ulcer location: heel Laterality: unspecified laterality Qualified Code(s): E11.621 - Type 2 diabetes mellitus with foot ulcer; L97.404 - Non-pressure chronic ulcer of unspecified heel and midfoot with necrosis of bone (3) Elevated troponin Status: Acute Assessment and plan: Likely demand ischemia. Management per the primary team. (4) Anemia Status: Acute Assessment and plan: Hgb 6.8 today. Management per the primary and nephrology teams. Qualifiers: Anemia type: due to chronic kidney disease Chronic kidney disease stage: unspecified stage Qualified Code(s): N18.9 - Chronic kidney disease, unspecified; D63.1 - Anemia in chronic kidney disease (5) Hypokalemia Status: Acute Assessment and plan: Serum potassium 2.7 on admission. Management per the primary and nephrology teams. (6) ESRD (end stage renal disease) on dialysis Status: Chronic Assessment and plan: Nephrology consulted and following. (7) CAD (coronary artery disease) Status: Chronic Qualifiers: Coronary Disease-Associated Artery/Lesion type: bypass graft [place] vs. transplanted heart: [place] heart Associated angina: without angina Qualified Code(s): I25.810 - Atherosclerosis of coronary artery bypass graft(s) without angina pectoris Infectious Disease HPI - Data of Consult Patient: new to practice Consult date: 05/26/17 Requesting Physician: Nii Mcghee MD Primary Care Provider: Jarad Galeana - Consult Narrative Reason for consult: Bilateral foot wounds, left great toe OM History of present illness: Mr. Chan is a 62 year old male past medical history end-stage renal disease on hemodialysis, chronic diabetic foot ulcers, diabetes, hypertension, anxiety, and depression. The patient was admitted to the hospital with bilateral foot wounds and also myelitis of the left great toe. We are consult May 26 further evaluation and treatment recommendations regarding also myelitis of the left great toe. The patient is a 62-year-old male past medical history as stated above. The patient presented to the emergency department with complaints of worsening of the bilateral foot wounds. The patient states that approximately 3 weeks ago he developed what appeared to be a blood blister to the base of the left great toe. He states the wound resolved, but he developed the same type of ulcer to the left heel. He states he was seen by his wound care doctor who debrided the wound. He states he subsequently developed an additional ulcer of the same type on the right heel about a week later. He states that over the course the past week and a half the ulcers have gotten worse and he noticed a foul odor. He states his wound care doctors on medications he came to the ER. Upon arrival, patient was afebrile and hemodynamically stable. Laboratory studies revealed a normal white blood cell count. He was hypokalemic and his serum creatinine was elevated, but was at the baseline. Bilateral foot x-rays show osteomyelitis of the great toe. The patient states that he was recently started on oral doxycycline and took about 3 days worth of that medication prior to arrival. Blood cultures were obtained 2 sets in the emergency department. The patient was started on empiric IV clindamycin and IV Zosyn. Podiatry and nephrology teams were consulted. He was admitted the hospital for further evaluation and treatment. During my exam today, the patient endorsed a history as stated above. He states that overall he is felt in his normal state of health, but has noticed some intermittent subjective fevers and chills. He denies any headache or neck pain. He denies any congestion, earache, or sore throat. He denies any chest pain, shortness of breath, or cough. He denies any nausea, vomiting, or constipation. He does report chronic intermittent diarrhea. He reports one loose stool today. He denies any abdominal pain or appetite changes. He denies any pain at the site of the ulcers. He is unsure if there has been any significant amount of drainage. He denies any redness or streaking or swelling of the legs. He denies any Oral thrush or skin lesions. He states he has been off his diabetic medications for 2 months and has not been checking his blood sugars. CC: Nii Mcghee MD Past Med Surg Social Fam HX - Past Medical History Attestation: Yes The following information was validated with the patient. Source: patient, old records reviewed, nursing notes reviewed Medical history: diabetes, hypertension, renal disease (ESRD on HD ), other ( Chronic bilateral foot ulcers) Psychiatric history: anxiety, depression - Past Surgical History Surgical History: coronary bypass (CABG), other (Left foot 4th and 5th toe amputation) - Social History Smoking Status: Former smoker Smokeless Tobacco Status: No Alcohol use: none Drug use: none Occupational status: retired Current living situation: Home - Independent Activity Level: Independent ambulation Recent Out of Country Travel Within the Last 8 Weeks: No Exposure or Possible Exposure to Illness During Travel: No - Family History Mother Hx Family Endocrine Disorder: Yes (Diabetes) Infectious Disease-CN:Meds Doxycycline [Doxycycline] 100 mg PO BID 05/25/17 [History] Lidocaine/Prilocaine [Emla] 1 appl TP AD PRN 05/25/17 [History] Allergies vancomycin Adverse Reaction (Verified 05/26/17 14:42) See Comments SARAH/Red Man Syndrome All systems: reviewed and no additional remarkable complaints except as stated Exam - Constitutional Vitals: Temp Pulse Resp BP Pulse Ox 97.2 F L 73 17 114/66 100 05/26/17 12:07 05/26/17 12:07 05/26/17 12:07 05/26/17 12:07 05/26/17 12:07 General appearance: average body habitus, cooperative, no acute distress - Head Head exam: Present: atraumatic, normal inspection, normocephalic - Eye Eye exam: Present: EOMI, normal appearance, PERRL Pupils: Present: normal accommodation - ENT ENT exam: Present: mucous membranes moist - Neck Neck exam: Present: normal inspection - Respiratory Respiratory exam: Present: CTAB. Absent: rales, respiratory distress, rhonchi, wheezes - Cardiovascular Cardiovascular exam: Present: RRR, +S1, +S2 - GI/Abdominal GI/Abdominal exam: Present: normal bowel sounds, soft. Absent: distended, tenderness - Extremities Exam Extremities exam: Absent: joint swelling, normal inspection, pedal edema Additional comments: AV fistula noted to the left upper extremity +/+. - Expanded Lower Extremity Exam 1 - Large, necrotic ulcer noted to the left heel with mild surrounding erythema , no active drainage. 2 - Stage IV 2.5cm x 2.5cm x 0.5cm ulcer noted to the medial aspect of the left great toe. No active drainage noted. Wound bed 10% slough and 90% granulation tissue. No foul odor noted. 3 - 0.5 x 0.5 stage II ulcer noted to the medial aspect of the right great toe , scabbed over. No surrounding erythema or drainage noted. 4 - 1cm x 1cm stage II ulcer noted to the middle of the plantar aspect of the right foot. No drainage, tenderness, or erythema noted. 5 - Large necrotic ulcer noted to the right heel with 100% eschar. Foul odor noted with removal of dressing. Mild erythema noted to the skin surrounding the ulcer. - Neurological Exam Neurological exam: Present: alert, oriented X3, no focal deficits - Psychiatric Psychiatric exam: Present: normal affect, normal mood - Skin Skin exam: Present: dry, intact, normal color, warm Infectious Disease CN: Results - Labs CBC & Chem 7: 05/27/17 05:42 05/27/17 05:42 Consult Discharge Plan - Plan Referrals: Jarad Galeana MD [Primary Care Provider] - 06/02/17 10:00 am - Attending Attestation I examined this patient and my medical decision-making was reviewed with the TALENT DIRECTOR/PA/Advanced Practice Nurse/Resident Physician. I agree with the documented findings, disposition and treatment plan as described except to the extent set forth below. this is an addendum to original report dictated by Dr. Petit. Please refer to Dr. Salgado note for full details. 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 We were asked to evaluate the patient and make further recommendations. Patient was also evaluated by Dr. Perez from podiatry and he feels that all of this is ischemic and surgery is not the best choice right now. Dr. Perez stated that he will try to treat it with topical treatment 2. After long discussion with Dr. Perez and the patient we decided to hold off on the antibiotics until further recommendations. In the meantime well check labs and get baseline ESR and CRP.
--- NOTE | 2017-05-26 16:26 | Podiatry Consult Note ---
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 Qualifiers: Diabetic foot ulcer location: heel Laterality: unspecified laterality Qualified Code(s): E11.621 - Type 2 diabetes mellitus with foot ulcer; L97.404 - Non-pressure chronic ulcer of unspecified heel and midfoot with necrosis of bone History of Present Illness Chief complaint: Bilateral foot ulcers HPI: Mr. Chan is a 62 year old male who was admitted through the ED last evening. I was asked to see the patient. Mr. Chan states that his began to smell "real bad" and came to [place] for care. He normally is being seen by Dr. Hoffman and Dwight who has performed digital amputations on his left foot and has been caring for his wounds of his left foot and right foot. Patient has long history of diabetes under unknown control with end- stage renal disease presently on dialysis. Patient is a marginal historian when asked direct questions. Patient states he has had a "bunch of tests already run", prior to coming to [place]. Patient states his doctor is on vacation for 2 weeks and could not be seen and Dwight therefore he came to [place] for his care. He states he has no chest pain, shortness of breath nausea vomiting fever chills bowel or bladder dysfunction. Past Med Surg Social Fam HX - Past Medical History Medical history: diabetes, hypertension, peripheral artery disease, renal disease (ESRD on HD ), other (Chronic bilateral foot ulcers) Psychiatric history: anxiety, depression - Past Surgical History Surgical History: coronary bypass (CABG), other (Left foot 4th and 5th toe amputation, osteotomy #5 metatarsal right foot) - Social History Smoking Status: Former smoker Smokeless Tobacco Status: No Alcohol use: none Drug use: none - Family History Mother Hx Family Endocrine Disorder: Yes (Diabetes) Medications and Allergies Doxycycline [Doxycycline] 100 mg PO BID 05/25/17 [History] Lidocaine/Prilocaine [Emla] 1 appl TP AD PRN 05/25/17 [History] Allergies vancomycin Adverse Reaction (Verified 05/26/17 14:42) See Comments SARAH/Red Man Syndrome All Systems Reviewed: A 10-system review of systems was performed and is negative for pertinent findings except as documented above in the HPI. Physical Exam - Constitutional Vitals: Temp Pulse Resp BP Pulse Ox 97.9 F 73 16 146/79 99 05/26/17 15:25 05/26/17 15:25 05/26/17 15:25 05/26/17 15:25 05/26/17 15:25 General appearance: average body habitus, cooperative, no acute distress - Expanded Lower Extremities Exam Foot/Toe exam: Present: amputation (Toe/metatarsal, #4 #5 left foot) Gait: Present: not tested/not observed - Neurological Exam Additional comments: Loss of protective sensation, 2 point discrimination, light touch, vibration, from toes to tibia bilaterally. - Psychiatric Psychiatric exam: Present: flat affect - Skin Additional comments: #1 Approximate 6 x 6 cm unstageable deep tissue injury full-thickness ulceration on the plantar aspect and left heels with wound edges are intact no sinus tract noted tunneling no odor no ascending cellulitis no lymphangitis no fluctuance. #2 Deep ulceration, plantar medial aspect of IP joint of left great toe measures 2.0 cm long 1.5 Center wide 0.9 cm deep wound with 80%, fibrin 10% eschar 10% granulation tissue #3 Superficial ulceration plantar third metatarsal right foot and several small excoriations on the plantar aspect of both feet/forefoot #4 We appreciate stasis dermatitis and trophic changes of the skin of both legs with peripheral edema associated with diabetes - Vascular Capillary Refill: sluggish Lower Extremity Vascular: decreased fine/light touch Results - Labs Result Diagrams: 05/27/17 05:42 05/27/17 05:42 Labs: Abnormal lab results RBC 2.64 M/mcL (4.19-5.50) L 05/26/17 08:07 Hgb 6.8 g/dL (12.9-16.9) L 05/26/17 08:07 Hct 23.5 % (37.5-50.1) L 05/26/17 08:07 MCH 25.8 pg (28.0-33.3) L 05/26/17 08:07 MCHC 28.9 g/dL (31.6-35.5) L 05/26/17 08:07 RDW 19.2 % (11.5-14.5) H 05/26/17 08:07 Hypochromasia Present (Not Present) A 05/26/17 08:07 Anisocytosis 1+ (Not Present) A 05/26/17 08:07 PT 17.6 Seconds (9.4-12.1) H 05/25/17 19:41 ABG pH 7.61 pH Units (7.32-7.45) H* 05/25/17 20:18 ABG HCO3 35.2 mEQ/L (21-27) H 05/25/17 20:18 ABG Total CO2 36.3 mEq/L (20-26) H 05/25/17 20:18 ABG Base Excess 12.8 mEq/L (-2.0 to 3.0) H 05/25/17 20:18 Sodium 133 mEq/L (136-145) L 05/26/17 04:37 Potassium 3.1 mEq/L (3.5-4.5) L 05/26/17 04:37 Chloride 95 mEq/L (98-109) L 05/26/17 04:37 Carbon Dioxide 31 mEq/L (19-29) H 05/26/17 04:37 BUN 33 mg/dL (8-26) H 05/26/17 04:37 Creatinine 4.85 mg/dL (0.72-1.25) H 05/26/17 04:37 Est GFR ( Amer) 15 (> 60) L 05/26/17 04:37 Est GFR (Non-Af Amer) 12 (> 60) L 05/26/17 04:37 Glucose 180 mg/dL (70-99) H 05/26/17 04:37 POC Glucose 234 (58-89) H 05/26/17 12:12 Calcium 7.6 mg/dL (8.6-10.8) L 05/26/17 04:37 Magnesium 1.4 mg/dL (1.6-2.6) L 05/26/17 04:37 Total Bilirubin 1.7 mg/dL (0.2-1.2) H 05/25/17 19:41 Direct Bilirubin 1.2 mg/dL (0.0-0.5) H 05/25/17 19:41 Troponin I 0.35 ng/mL (0-0.03) H* 05/25/17 19:41 B-Natriuretic Peptide > 5000 pg/mL (0-100) H 05/26/17 04:37 Albumin 2.1 g/dL (3.5-5.0) L 05/25/17 19:41 Globulin 5.1 g/dL (2.4-3.5) H 05/25/17 19:41 Albumin/Globulin Ratio 0.4 (1.1-2.2) L 05/25/17 19:41 HDL Cholesterol 14 mg/dL (40-59) L 05/26/17 04:37 Cholesterol/HDL Ratio 6.3 (0-4.9) H 05/26/17 04:37 H & H 05/26/17 05/26/17 Range/Units 05:55 08:07 Hgb 6.2 L D 6.8 L (12.9-16.9) g/dL Hct 21.4 L 23.5 L (37.5-50.1) % All other labs normal. - Diagnostic results Ankle/Foot MRI: image reviewed Consult Discharge Plan - Plan Referrals: Jarad Galeana MD [Primary Care Provider] - 06/02/17 10:00 am
[2017-05-26] MEDS ORDERED: *HR* Dextrose 50 % in Water (Syg) 50 ML SYRINGE IVP PRN (17:07)
[2017-05-26] MEDS ORDERED: Dextrose Gel 15 GM PO PRN ×2 (17:07)
[2017-05-26] MEDS ORDERED: D5% in Water 1,000 ML IVC PRN (17:07)
[2017-05-26] MEDS: Insulin LISPRO 300 UNITS/3 ML VIAL SQ SCH ×2 (17:54→21:26)
[2017-05-27] MEDS: *HR* Heparin 5,000 UNIT/ML VIAL SQ SCH (05:48)
[2017-05-27 05:55] LABS: Basophils % 0.3 %; Eosinophils # 0.3 K/mcL (0.0-0.6); Eosinophils % 2.9 %; Hematocrit 26.4 % (37.5-50.1); Hemoglobin 7.7 g/dL (12.9-16.9); Lymphocytes # 1.6 K/mcL (0.6-4.6); Lymphocytes % 15.6 %; Mean Corpuscular HGB Conc 29.2 g/dL (31.6-35.5); Mean Corpuscular Hemoglobin 26.2 pg (28.0-33.3); Mean Corpuscular Volume 89.8 fL (83.0-100.0); Mean Platelet Volume 10.7 fL (9.4-12.4); Monocytes # 0.5 K/mcL (0.0-1.3); Monocytes % 4.7 %; Neutrophils # 7.4 K/mcL (1.6-8.9); Platelet Count 177 K/mcL (140-400); Red Blood Count 2.94 M/mcL (4.19-5.50); Red Cell Distribution Width 18.2 % (11.5-14.5); Segmented Neutrophils % 74.5 %
[2017-05-27 06:10] LABS: Calcium 7.8 mg/dL (8.6-10.8); Potassium 3.1 mEq/L (3.5-4.5)
[2017-05-27] MEDS: Insulin LISPRO 300 UNITS/3 ML VIAL SQ SCH ×3 (08:18→22:36)
--- NOTE | 2017-05-27 10:43 | Infectious Disease Progress No ---
Date of Encounter: 05/28/17 Time of Encounter: 10:41 - Assessment and Plan (1) Osteomyelitis Current Visit: Yes Status: Acute Location: Left foot, great toe. Causative organism unclear. X-ray of the left foot shows great toe osteomyelitis. The patient has no sepsis criteria. Podiatry has been consulted. Discussed with Dr. Perez. No plans to take the patient to the OR as the patient has refused vascular workup and given the extent of the bilateral heel wounds there is a high index of suspicion that the patient has PAD which would likely make wound healing nearly impossible. Osteomyelitis of the toe is likely chronic given the lack of sepsis criteria and no evidence of acute infection of the toe. ESR 75, CRP not completed. Order in. Notified lab to add to AM labs. Blood cultures drawn 05/26/17 are pending x 2 sets. Given that the patient has no sepsis criteria and is clinically stable, hold further antibiotics. Get wound culture of the left great toe. If the patient declines or becomes toxic, start broad-spectrum antibiotics. 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 Since the patient is now HD-dependent, we can probably consider trialing vancomyin if needed but will ask pharmacy to slow down the rate of infusion given the patient 's history of Mo syndrome. Would recommend starting Zosyn as well. Will defer further management to the patient's wound care team in [facility]. Wound care and activity restrictions as outlined by the podiatry team. No further recommendations at this time. Will sign off. Please re-consult if needed. Qualifiers: Osteomyelitis type: unspecified type Osteomyelitis location: foot Laterality: left Qualified Code(s): M86.9 - Osteomyelitis, unspecified (2) Diabetic ulcer of foot associated with type 2 diabetes mellitus, with necrosis of bone Current Visit: Yes Status: Acute Etiology not entirely clear --> infection, PAD, other, but high index of suspicion for PAD. The patient states he has had vascular studies previously. Will request these records, but may need to consider repeating if not done recently. Consider vascular consult. Wound care recommendations from the podiatry team. Check HgbA1C. Recommend aggressive glucose monitoring and control to promote wound healing and prevent reinfection. Management per the primary team. Qualifiers: Diabetic foot ulcer location: heel Laterality: unspecified laterality Qualified Code(s): E11.621 - Type 2 diabetes mellitus with foot ulcer; L97.404 - Non-pressure chronic ulcer of unspecified heel and midfoot with necrosis of bone (3) Elevated troponin Current Visit: Yes Status: Acute Likely demand ischemia. Management per the primary team. (4) Anemia Current Visit: Yes Status: Acute Improved to 7.7 today after 1 unit PRBCs. Management per the primary and nephrology teams. Qualifiers: Anemia type: due to chronic kidney disease Chronic kidney disease stage: unspecified stage Qualified Code(s): N18.9 - Chronic kidney disease, unspecified; D63.1 - Anemia in chronic kidney disease (5) Hypokalemia Current Visit: Yes Status: Acute Serum potassium 2.7 on admission. Improved to 3.1 today. Management per the primary and nephrology teams. (6) ESRD (end stage renal disease) on dialysis Current Visit: Yes Status: Chronic Nephrology consulted and following. (7) CAD (coronary artery disease) Current Visit: Yes Status: Chronic Qualifiers: Coronary Disease-Associated Artery/Lesion type: bypass graft [place] vs. transplanted heart: [place] heart Associated angina: without angina Qualified Code(s): I25.810 - Atherosclerosis of coronary artery bypass graft(s) without angina pectoris - Subjective Interval history: Patient seen and examined. No acute events noted overnight. Patient sitting up on the side of the bed. Denies fevers or chills. Denies chest pain, shortness of breath, or cough. Denies nausea, vomiting, or constipation. Reports three diarrheal stools this morning. Denies abdominal pain and states his appetite is okay. States he has made little urine overnight. Denies oral thrush or skin lesions. Denies pain at the site of the ulcers. Infect Dis PN-Objective Data - Labs CBC & Chem 7: 05/28/17 03:26 05/28/17 03:26 Labs: Laboratory Results - last 24 hr 05/26/17 05/26/17 05/26/17 05:55 06:35 08:07 WBC RBC Hgb Hct MCV MCH MCHC RDW Plt Count MPV Immature Gran % Seg Neutrophils % Lymphocytes % Monocytes % Eosinophils % Basophils % Neutrophils # Lymphocytes # Monocytes # Eosinophils # Basophils # ESR 75 H Sodium Potassium Chloride Carbon Dioxide BUN Creatinine Est GFR ( Amer) Est GFR (Non-Af Amer) BUN/Creatinine Ratio Glucose POC Glucose 192 H Calculated Osmolality Calcium Stl C. diff Tox B Gene Blood Type O POSITIVE Antibody Screen NEGATIVE Crossmatch See Detail 05/26/17 05/26/17 05/26/17 12:12 15:28 16:48 WBC RBC Hgb Hct MCV MCH MCHC RDW Plt Count MPV Immature Gran % Seg Neutrophils % Lymphocytes % Monocytes % Eosinophils % Basophils % Neutrophils # Lymphocytes # Monocytes # Eosinophils # Basophils # ESR Sodium Potassium Chloride Carbon Dioxide BUN Creatinine Est GFR ( Amer) Est GFR (Non-Af Amer) BUN/Creatinine Ratio Glucose POC Glucose 234 H 253 H Calculated Osmolality Calcium Stl C. diff Tox B Gene Negative Blood Type Antibody Screen Crossmatch 05/26/17 05/27/17 05/27/17 20:58 05:42 05:42 WBC 9.9 RBC 2.94 L Hgb 7.7 L Hct 26.4 L MCV 89.8 MCH 26.2 L MCHC 29.2 L RDW 18.2 H Plt Count 177 MPV 10.7 Immature Gran % 2.0 Seg Neutrophils % 74.5 Lymphocytes % 15.6 Monocytes % 4.7 Eosinophils % 2.9 Basophils % 0.3 Neutrophils # 7.4 Lymphocytes # 1.6 Monocytes # 0.5 Eosinophils # 0.3 Basophils # 0.0 ESR Sodium 134 L Potassium 3.1 L Chloride 94 L Carbon Dioxide 28 BUN 44 H D Creatinine 5.71 H Est GFR ( Amer) 12 L Est GFR (Non-Af Amer) 10 L BUN/Creatinine Ratio 8 Glucose 128 H POC Glucose 95 H Calculated Osmolality 291 Calcium 7.8 L Stl C. diff Tox B Gene Blood Type Antibody Screen Crossmatch 05/27/17 07:14 WBC RBC Hgb Hct MCV MCH MCHC RDW Plt Count MPV Immature Gran % Seg Neutrophils % Lymphocytes % Monocytes % Eosinophils % Basophils % Neutrophils # Lymphocytes # Monocytes # Eosinophils # Basophils # ESR Sodium Potassium Chloride Carbon Dioxide BUN Creatinine Est GFR ( Amer) Est GFR (Non-Af Amer) BUN/Creatinine Ratio Glucose POC Glucose 124 H Calculated Osmolality Calcium Stl C. diff Tox B Gene Blood Type Antibody Screen Crossmatch Cultures: Serology 05/26/17 Range/Units 16:48 Stl C. diff Tox B Gene Negative (Negative) Exam - Constitutional Vitals: Temp Pulse Resp BP Pulse Ox 97.2 F L 72 17 120/68 98 05/27/17 07:11 05/27/17 07:11 05/27/17 07:11 05/27/17 07:11 05/27/17 07:11 General appearance: average body habitus, cooperative, no acute distress - Head Head exam: Present: atraumatic, normal inspection, normocephalic - Eye Eye exam: Present: EOMI, normal appearance, PERRL Pupils: Present: normal accommodation - ENT ENT exam: Present: mucous membranes moist - Neck Neck exam: Present: normal inspection - Respiratory Respiratory exam: Present: CTAB. Absent: rales, respiratory distress, rhonchi, wheezes - Cardiovascular Cardiovascular exam: Present: RRR, +S1, +S2 - GI/Abdominal GI/Abdominal exam: Present: normal bowel sounds, soft. Absent: distended, tenderness - Extremities Exam Extremities exam: Present: pedal edema (2+ BLE). Absent: joint swelling, tenderness Additional comments: Left foot dressing with moderate amount of serosanguinous drainage noted. Right foot dressing with small amount of serosanguinous drainage noted. - Neurological Exam Neurological exam: Present: alert, oriented X3, no focal deficits - Psychiatric Psychiatric exam: Present: normal affect, normal mood - Skin Skin exam: Present: dry, intact, pallor, warm - Additional findings Additional findings: AV fistula noted to the LUE +/+. Consult Discharge Plan - Plan Referrals: Jarad Galeana MD [Primary Care Provider] - 06/02/17 10:00 am - Attending Attestation I examined this patient and my medical decision-making was reviewed with the CORK FLOOR INSTALLER/PA/Advanced Practice Nurse/Resident Physician. I agree with the documented findings, disposition and treatment plan as described except to the extent set forth below.
--- NOTE | 2017-05-27 11:25 | Electrocardiograph Report ---
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
[2017-05-27] MEDS ORDERED: 0.9 % Sodium Chloride 250 ML IVC PRN (12:44)
[2017-05-27] MEDS ORDERED: 0.9 % Sodium Chloride 1,000 ML PRIME SCH (12:45)
[2017-05-27] MEDS ORDERED: 0.9 % Sodium Chloride 2,000 ML ONE (15:02)
--- NOTE | 2017-05-27 15:49 | Internal Med Progress Note ---
<Isael Eason - Last Filed: 05/27/17 15:46> Date of Encounter: 05/27/17 Time of Encounter: 09:45 - Assessment and plan (1) Diabetic ulcer of foot associated with type 2 diabetes mellitus, with necrosis of bone Current Visit: Yes Status: Acute Assessment and plan: The patient has bilateral, nonhealing chronic ulcers on his foot, most likely related to diabetes. X-ray of his left foot shows signs of osteomyelitis. Patient was started on Zosyn and clindamycin. Patient has had an adverse reaction to vancomycin in the past. Patient was seen by podiatry this morning. Wounds were cleaned and wrapped. May need amputation. Qualifiers: Diabetic foot ulcer location: heel Laterality: unspecified laterality Qualified Code(s): E11.621 - Type 2 diabetes mellitus with foot ulcer; L97.404 - Non-pressure chronic ulcer of unspecified heel and midfoot with necrosis of bone (2) Osteomyelitis Current Visit: Yes Status: Acute Assessment and plan: Findings on x-ray of patient's feet reveals evidence of osteomyelitis in the left foot. Qualifiers: Osteomyelitis type: unspecified type Osteomyelitis location: foot Laterality: left Qualified Code(s): M86.9 - Osteomyelitis, unspecified (3) Anemia Current Visit: Yes Status: Acute Assessment and plan: Patient has anemia, most likely due to his chronic renal disease. -Patient states that his baseline hemoglobin is approximately 8. -His hemoglobin yesterday was 6.2. One unit of blood was given. -Hemoglobin this morning was 7.7. Qualifiers: Anemia type: due to chronic kidney disease Chronic kidney disease stage: unspecified stage Qualified Code(s): N18.9 - Chronic kidney disease, unspecified; D63.1 - Anemia in chronic kidney disease (4) ESRD (end stage renal disease) on dialysis Current Visit: Yes Status: Chronic Assessment and plan: Patient is scheduled to have dialysis tomorrow. -Patient states that he has dialysis 3 days per week. -He states that he has noticed several dialysis appointments recently due to an illness. (5) Hypokalemia Current Visit: Yes Status: Acute Assessment and plan: Patient has low potassium. -He was supplemented in the emergency department. -Patient's potassium this morning was 3.1. - Subjective Interval history: Patient was seen and examined this morning. Patient states that he is feeling well today. Wounds on his feet have been cleaned and wrapped by podiatry this morning. He still states that he detects a strong odor from his wounds. He currently denies having any fever, chills, nausea, vomiting, weakness, or fatigue. Patient has no complaints at this time. - Constitutional Vitals: Temp Pulse Resp BP Pulse Ox 97.6 F 68 16 119/68 98 05/27/17 15:37 05/27/17 15:37 05/27/17 15:37 05/27/17 15:37 05/27/17 15:37 General appearance: Present: A&O X 3, no acute distress Internal Medicine: Result - Labs CBC & Chem 7: 05/27/17 05:42 05/27/17 05:42 Labs: Short CBC 05/27/17 Range/Units 05:42 WBC 9.9 (4.3-11.1) K/mcL Hgb 7.7 L (12.9-16.9) g/dL Hct 26.4 L (37.5-50.1) % Plt Count 177 (140-400) K/mcL Neutrophils # 7.4 (1.6-8.9) K/mcL BMP 05/27/17 05:42 Sodium 134 L Potassium 3.1 L Chloride 94 L Carbon Dioxide 28 BUN 44 H D Creatinine 5.71 H Glucose 128 H Calcium 7.8 L - ABG Interpretation ABG results: ABG ABG pH 7.61 pH Units (7.32-7.45) H* 05/25/17 20:18 ABG pCO2 35 mmHg (35-45) 05/25/17 20:18 ABG pO2 86 mmHg (85-104) 05/25/17 20:18 ABG O2 Saturation 98 % (95-98) 05/25/17 20:18 PT/INR, D-dimer PT 17.6 Seconds (9.4-12.1) H 05/25/17 19:41 Consult Discharge Plan - Plan Referrals: Jarad Galeana MD [Primary Care Provider] - 06/02/17 10:00 am <Nii Mcghee - Last Filed: 05/27/17 17:00> Date of Encounter: 05/27/17 - Constitutional Vitals: Temp Pulse Resp BP Pulse Ox 97.6 F 68 16 125/71 98 05/27/17 15:37 05/27/17 15:37 05/27/17 15:37 05/27/17 16:28 05/27/17 15:37 Internal Medicine: Result - Labs CBC & Chem 7: 05/27/17 05:42 05/27/17 05:42 Labs: Short CBC 05/27/17 Range/Units 05:42 WBC 9.9 (4.3-11.1) K/mcL Hgb 7.7 L (12.9-16.9) g/dL Hct 26.4 L (37.5-50.1) % Plt Count 177 (140-400) K/mcL Neutrophils # 7.4 (1.6-8.9) K/mcL BMP 05/27/17 05:42 Sodium 134 L Potassium 3.1 L Chloride 94 L Carbon Dioxide 28 BUN 44 H D Creatinine 5.71 H Glucose 128 H Calcium 7.8 L - ABG Interpretation ABG results: ABG ABG pH 7.61 pH Units (7.32-7.45) H* 05/25/17 20:18 ABG pCO2 35 mmHg (35-45) 05/25/17 20:18 ABG pO2 86 mmHg (85-104) 05/25/17 20:18 ABG O2 Saturation 98 % (95-98) 05/25/17 20:18 PT/INR, D-dimer PT 17.6 Seconds (9.4-12.1) H 05/25/17 19:41 - Attending Attestation I examined this patient and my medical decision-making was reviewed with the Resident Physician on 05/27/17. I agree with the documented findings, disposition and treatment plan as described except to the extent set forth below. Mr. Chan has a PMH of ESRD on HD, not compliant with HD or medications, DM with chronic DM foot ulcers, PAD, CAD, chronic anemia on EPO He is admitted and being managed for Right toe OM, and necrotic bilateral heel ulcers that are suspected to be infected. On exam,patient is cachectic and in no form of distress, chest is CTAB, lower extremities with bilateral necrotic heel ulcers, fluctaunt, not tender , mild surrounding erythea, Right big toe with punched out wound draining foul- smelling discharge, Right great toe with healed ulcer, Right plantar surface with a smaller necrotic ulcer. Pulses are present but diminished Labs and Imaging reviewed Patient's antibiotics were discontinued 05/26 p.m, per ID recommendations Podiatry brookeal noted-no plan for surgical intervention for now, recommends wound care, with enzymatic debridement. Patient's Xray however, shows R toe OM, along with elevated ESR . He is not septic Will discuss with Infectious disease regarding plan of care as OM is present- chronic, per podiatry If patient is not to be treated with antibiotics, consider discharge home with wound care to follow up with Infectious disease and Podiatry as out-patient He does require a wheel chair, but wants a motorized wheelchair, will discuss with SW, however, this is typically provided as out-patient. Patient has poor prognosis as he has PAD and may require amputation.....(will prefer to follow up with his own asset management analyst For HD today and possibly discharge tomorrow Rest of details as in resident's documentation
--- NOTE | 2017-05-27 18:01 | Nephrology Progress Note ---
Date of Encounter: 05/27/17 Time of Encounter: 10:00 Objective - Vital Signs Vital signs: Vital Signs Temp Pulse Resp BP Pulse Ox 05/27/17 17:35 140/79 05/27/17 17:20 132/68 05/27/17 17:05 136/76 05/27/17 16:50 112/59 05/27/17 16:35 127/70 05/27/17 16:20 121/72 05/27/17 16:05 131/68 05/27/17 15:50 125/71 05/27/17 15:37 97.6 F 68 16 119/68 98 05/27/17 15:35 97.7 F 18 119/76 05/27/17 11:22 97.0 F L 75 18 124/62 98 05/27/17 07:11 97.2 F L 72 17 120/68 98 05/27/17 05:15 97.7 F 73 17 139/68 100 05/27/17 00:39 97.5 F L 77 15 137/59 98 05/26/17 19:36 98.2 F 72 18 124/66 99 Intake and Output 05/27/17 05/27/17 05/27/17 07:59 15:59 23:59 Intake Total 1320 / 1320 Output Total 75 / 75 Balance -75 / -75 1320 / 1320 Intake: Oral 720 / 720 Intake, Rinseback and 600 / 600 Flushes Output: Urine 75 / 75 Other: Meal Lunch Percent of Meal Consumed 100% Stool Size Moderate Stool Consistency soft Stool Characteristics Normal for Patient Stool Color Brown Weight 83.16 kg 83.16 kg Blood Glucose* 124 158 Hemodialysis Net Fluid 386 [id number] Removed (mL) Patient Weight 05/27/17 23:59 Weight 83.16 kg - Lab 05/27/17 05:42 05/27/17 05:42 Most recent lab results ABG pH 7.61 pH Units (7.32-7.45) H* 05/25/17 20:18 ABG pCO2 35 mmHg (35-45) 05/25/17 20:18 ABG pO2 86 mmHg (85-104) 05/25/17 20:18 ABG HCO3 35.2 mEQ/L (21-27) H 05/25/17 20:18 ABG O2 Saturation 98 % (95-98) 05/25/17 20:18 Calcium 7.8 mg/dL (8.6-10.8) L 05/27/17 05:42 Phosphorus 3.6 mg/dL (2.3-4.7) 05/26/17 04:37 Magnesium 1.4 mg/dL (1.6-2.6) L 05/26/17 04:37 Consult Discharge Plan - Plan Referrals: Jarad Galeana MD [Primary Care Provider] - 06/02/17 10:00 am
[2017-05-28 06:10] LABS: Basophils % 0.4 %; Eosinophils # 0.2 K/mcL (0.0-0.6); Eosinophils % 2.4 %
[2017-05-28 06:12] LABS: Hematocrit 23.5 % (37.5-50.1); Hemoglobin 6.8 g/dL (12.9-16.9); Immature Granulocytes % 2.1 % (0-4); Lymphocytes % 14.4 %; Mean Corpuscular HGB Conc 28.9 g/dL (31.6-35.5); Mean Corpuscular Hemoglobin 26.6 pg (28.0-33.3); Mean Corpuscular Volume 91.8 fL (83.0-100.0); Mean Platelet Volume 11.4 fL (9.4-12.4); Monocytes # 0.5 K/mcL (0.0-1.3); Monocytes % 6.7 %; Neutrophils # 5.2 K/mcL (1.6-8.9); Platelet Count 142 K/mcL (140-400); Red Blood Count 2.56 M/mcL (4.19-5.50); Red Cell Distribution Width 17.9 % (11.5-14.5)
[2017-05-28 06:21] LABS: Calcium 7.7 mg/dL (8.6-10.8); Potassium 3.6 mEq/L (3.5-4.5)
[2017-05-28] MEDS: *HR* Heparin 5,000 UNIT/ML VIAL SQ SCH ×3 (06:22→16:51)
[2017-05-28 07:43] LABS: Hypochromasia Present (Not Present); Platelet Estimate Normal (Normal)
[2017-05-28] MEDS: Insulin LISPRO 300 UNITS/3 ML VIAL SQ SCH ×5 (08:39→21:34)
[2017-05-28] MEDS ORDERED: 0.9 % Sodium Chloride 250 ML ONE (10:50)
--- NOTE | 2017-05-28 11:16 | Nephrology Progress Note ---
Date of Encounter: 05/28/17 Time of Encounter: 11:14 - Assessment and Plan (1) ESRD (end stage renal disease) on dialysis Current Visit: Yes Status: Chronic Plan for HD tomorrow Continue renal diet If no contraindications, recommend patient be up to chair 3-4 times a day (2) Anemia Current Visit: Yes Status: Acute Hgb down to 6.8 from 7.7 Goal 10-11 Transfuse per parameters Qualifiers: Anemia type: due to chronic kidney disease Chronic kidney disease stage: unspecified stage Qualified Code(s): N18.9 - Chronic kidney disease, unspecified; D63.1 - Anemia in chronic kidney disease (3) Hypokalemia Current Visit: Yes Status: Resolved (4) Osteomyelitis Current Visit: Yes Status: Acute Necrotic areas to bilat heels Strongly recommend consult to vascular surgeon; according to note of 05/27 patient refused vascular work-up however patient states today he isn't sure what is going on or what the plan is; when I discussed vascular surgeon becoming involved, patient seemed open to this option. Qualifiers: Osteomyelitis type: unspecified type Osteomyelitis location: foot Laterality: left Qualified Code(s): M86.9 - Osteomyelitis, unspecified Subjective Principal diagnosis: osteomyelitits, ESRD on dialysis Interval history: Patient seen and examined. States he is feeling ok but would like to get up and have someone at least wheel him around as he has been in bed x 3-4 days and is very bored. Objective - Vital Signs Vital signs: Vital Signs Temp Pulse Resp BP Pulse Ox 05/28/17 08:07 98.3 F 81 16 144/71 98 05/27/17 23:46 98.9 F 76 16 105/48 94 05/27/17 20:09 98.2 F 72 16 123/55 98 05/27/17 18:50 98.2 F 18 128/69 05/27/17 18:35 129/70 05/27/17 18:20 127/73 05/27/17 18:05 131/67 05/27/17 17:50 132/73 05/27/17 17:35 140/79 05/27/17 17:20 132/68 05/27/17 17:05 136/76 05/27/17 16:50 112/59 05/27/17 16:35 127/70 05/27/17 16:20 121/72 05/27/17 16:05 131/68 05/27/17 15:50 125/71 05/27/17 15:37 97.6 F 68 16 119/68 98 05/27/17 15:35 97.7 F 18 119/76 05/27/17 11:22 97.0 F L 75 18 124/62 98 Intake and Output 05/27/17 05/28/17 05/28/17 23:59 07:59 15:59 Output Total 3600 / 3600 Balance -3600 / -3600 Output: Urine 0 / 0 Total Dialysis (HD) 3600 / 3600 Output Other: Stool Size Small Stool Consistency formed # Voids 1 # Bowel Movements 1 Weight 83.09 kg Blood Glucose* 164 147 Hemodialysis Net Fluid 3000 Removed (mL) Patient Weight 05/28/17 23:59 Weight 83.09 kg - General Appearance General appearance: Present: cachectic, frail EENT: Present: ATNC, mucous membranes moist, hearing intact, vision intact Neck: Present: supple Respiratory: Present: clear Cardiology: Present: no edema, normal S1, normal S2 Gastrointestinal: Present: no tenderness Integumentary: Present: warm and dry, ulcer (necrotic areas bilat heels- dressings in place) Neurologic: Present: alert and oriented x3 Psychiatric: Present: mood/affect appropriate, cooperative - Lab 05/28/17 03:26 05/28/17 03:26 Most recent lab results ABG pH 7.61 pH Units (7.32-7.45) H* 05/25/17 20:18 ABG pCO2 35 mmHg (35-45) 05/25/17 20:18 ABG pO2 86 mmHg (85-104) 05/25/17 20:18 ABG HCO3 35.2 mEQ/L (21-27) H 05/25/17 20:18 ABG O2 Saturation 98 % (95-98) 05/25/17 20:18 Calcium 7.7 mg/dL (8.6-10.8) L 05/28/17 03:26 Phosphorus 3.6 mg/dL (2.3-4.7) 05/26/17 04:37 Magnesium 1.4 mg/dL (1.6-2.6) L 05/26/17 04:37 Consult Discharge Plan - Plan Referrals: Jarad Galeana MD [Primary Care Provider] - 06/02/17 10:00 am
--- NOTE | 2017-05-28 16:45 | Internal Med Progress Note ---
<Isael Eason - Last Filed: 05/28/17 16:42> Date of Encounter: 05/28/17 Time of Encounter: 08:45 - Assessment and plan (1) Diabetic ulcer of foot associated with type 2 diabetes mellitus, with necrosis of bone Current Visit: Yes Status: Acute Assessment and plan: The patient has bilateral, nonhealing chronic ulcers on his foot, most likely related to diabetes. -X-ray of his left foot shows signs of osteomyelitis. -Patient was started on Zosyn and clindamycin. -Antibiotics were discontinued per recommendation from infectious disease, stating that patient will only need antibiotics if there are signs of systemic infection. -Patient has had an adverse reaction to vancomycin in the past. -Patient was seen by podiatry this morning. Wounds were cleaned and wrapped. -May need amputation. Qualifiers: Diabetic foot ulcer location: heel Laterality: unspecified laterality Qualified Code(s): E11.621 - Type 2 diabetes mellitus with foot ulcer; L97.404 - Non-pressure chronic ulcer of unspecified heel and midfoot with necrosis of bone (2) Osteomyelitis Current Visit: Yes Status: Acute Assessment and plan: Findings on x-ray of patient's feet reveals evidence of osteomyelitis in the left foot. Qualifiers: Osteomyelitis type: unspecified type Osteomyelitis location: foot Laterality: left Qualified Code(s): M86.9 - Osteomyelitis, unspecified (3) Anemia Current Visit: Yes Status: Acute Assessment and plan: Patient has anemia, most likely due to his chronic renal disease. -Patient states that his baseline hemoglobin is approximately 8. -Patient's hemoglobin was low this morning at 6.8. He was given transfusion of one unit of packed red blood cells. Qualifiers: Anemia type: due to chronic kidney disease Chronic kidney disease stage: unspecified stage Qualified Code(s): N18.9 - Chronic kidney disease, unspecified; D63.1 - Anemia in chronic kidney disease (4) ESRD (end stage renal disease) on dialysis Current Visit: Yes Status: Chronic Assessment and plan: Patient states that he has dialysis 3 days per week. -He states that he has noticed several dialysis appointments recently due to an illness. (5) Hypokalemia Current Visit: Yes Status: Resolved Assessment and plan: Patient had low potassium. -He was supplemented in the emergency department. -Patient's potassium this morning was 3.6 - Subjective Interval history: Patient was seen and examined this morning. Patient states that he is feeling a bit tired today. He says this is possibly due to the fact that he has been unable to move around. Patient's feet have been wrapped, the patient still complains that there is odor emitting from his wounds. He currently denies having any fever, chills, nausea, vomiting, weakness, or fatigue. Patient has no other complaints at this time. - Constitutional Vitals: Temp Pulse Resp BP Pulse Ox 98.3 F 74 16 138/66 99 05/28/17 14:10 05/28/17 14:10 05/28/17 14:10 05/28/17 14:10 05/28/17 14:10 General appearance: Present: no acute distress - Head Head exam: Present: atraumatic, normocephalic - Neck Neck exam general surgery: Present: supple, trachea midline - Respiratory Respiratory exam: Present: CTAB. Absent: accessory muscle use, rales, rhonchi, wheezes - Cardiovascular Cardiovascular exam: Present: RRR, +S1, +S2. Absent: diastolic murmur, gallop, rubs, systolic murmur - Extremities Exam Extremities exam: Absent: pedal edema - Skin Skin exam: Present: dry, intact Internal Medicine: Result - Labs CBC & Chem 7: 05/28/17 03:26 05/28/17 03:26 Labs: Short CBC 05/28/17 Range/Units 03:26 WBC 7.0 (4.3-11.1) K/mcL Hgb 6.8 L (12.9-16.9) g/dL Hct 23.5 L (37.5-50.1) % Plt Count 142 (140-400) K/mcL Neutrophils # 5.2 (1.6-8.9) K/mcL BMP 05/28/17 03:26 Sodium 137 Potassium 3.6 Chloride 100 Carbon Dioxide 30 H BUN 25 D Creatinine 4.04 H Glucose 203 H Calcium 7.7 L - ABG Interpretation ABG results: ABG ABG pH 7.61 pH Units (7.32-7.45) H* 05/25/17 20:18 ABG pCO2 35 mmHg (35-45) 05/25/17 20:18 ABG pO2 86 mmHg (85-104) 05/25/17 20:18 ABG O2 Saturation 98 % (95-98) 05/25/17 20:18 PT/INR, D-dimer PT 17.6 Seconds (9.4-12.1) H 05/25/17 19:41 Consult Discharge Plan - Plan Referrals: Jarad Galeana MD [Primary Care Provider] - 06/02/17 10:00 am <Nii Mcghee T - Last Filed: 05/28/17 17:01> Date of Encounter: 05/28/17 - Constitutional Vitals: Temp Pulse Resp BP Pulse Ox 98.2 F 73 18 129/55 99 05/28/17 16:40 05/28/17 16:40 05/28/17 16:40 05/28/17 16:40 05/28/17 16:40 Internal Medicine: Result - Labs CBC & Chem 7: 05/28/17 03:26 05/28/17 03:26 Labs: Short CBC 05/28/17 Range/Units 03:26 WBC 7.0 (4.3-11.1) K/mcL Hgb 6.8 L (12.9-16.9) g/dL Hct 23.5 L (37.5-50.1) % Plt Count 142 (140-400) K/mcL Neutrophils # 5.2 (1.6-8.9) K/mcL BMP 05/28/17 03:26 Sodium 137 Potassium 3.6 Chloride 100 Carbon Dioxide 30 H BUN 25 D Creatinine 4.04 H Glucose 203 H Calcium 7.7 L - ABG Interpretation ABG results: ABG ABG pH 7.61 pH Units (7.32-7.45) H* 05/25/17 20:18 ABG pCO2 35 mmHg (35-45) 05/25/17 20:18 ABG pO2 86 mmHg (85-104) 05/25/17 20:18 ABG O2 Saturation 98 % (95-98) 05/25/17 20:18 PT/INR, D-dimer PT 17.6 Seconds (9.4-12.1) H 05/25/17 19:41 - Attending Attestation I examined this patient and my medical decision-making was reviewed with the Resident Physician on 05/28/17. I agree with the documented findings, disposition and treatment plan as described except to the extent set forth below. Mr. Hurless has a PMH of ESRD on HD, not compliant with HD or medications, DM with chronic DM foot ulcers, PAD, CAD, chronic anemia on EPO He is admitted and being managed for Right toe OM, and necrotic bilateral heel ulcers that are suspected to be infected. Today patient reports he is now amenable for vascular intervention, he also is pending PT/OT eval and may most likely be going to inpatient rehab as he cannot mobilize on his feet. His Hb droped again to 6.8. He has no signs of sepsis. On exam, patient is cachectic and in no form of distress, chest is CTAB, Wound dressings on both extremities soaked and foul-smelling, lower extremities with bilateral necrotic heel ulcers, fluctuant, not tender, mild surrounding erythema , Right big toe with punched out wound draining foul-smelling discharge, Right great toe with healed ulcer, Right plantar surface with a smaller necrotic ulcer. Pulses are present but diminished Labs and Imaging reviewed Patient's antibiotics were discontinued 711 p.m, per ID recommendations Podiatry mike noted-no plan for surgical intervention for now, recommends wound care, with enzymatic debridement. Patient's Xray however, shows R toe OM, along with elevated ESR. He is not septic Transfuse one unit today Discussion with ID-patient not candidate for antibiotics. Consulted with vascular surgery for possible revascularization/more testing Nephrology is following for ESRD and anemia Electric wheelchair may only be recommended by a certified PT MD, this may be done by PT O-P/In-patient rehab Discharge disposition is to SNF if no surgical /vascular intervention is planned.... Rest of details as in resident's documentation
[2017-05-29 06:04] LABS: Basophils % 0.4 %; Eosinophils % 2.2 %; Hemoglobin 7.5 g/dL (12.9-16.9); Immature Granulocytes % 2.6 % (0-4); Red Cell Distribution Width 18.1 % (11.5-14.5)
[2017-05-29 06:06] LABS: Eosinophils # 0.2 K/mcL (0.0-0.6); Hematocrit 25.5 % (37.5-50.1); Lymphocytes # 1.1 K/mcL (0.6-4.6); Mean Corpuscular HGB Conc 29.4 g/dL (31.6-35.5); Mean Corpuscular Hemoglobin 26.6 pg (28.0-33.3); Mean Corpuscular Volume 90.4 fL (83.0-100.0); Mean Platelet Volume 10.8 fL (9.4-12.4); Monocytes # 0.5 K/mcL (0.0-1.3); Monocytes % 6.1 %; Neutrophils # 5.8 K/mcL (1.6-8.9); Platelet Count 139 K/mcL (140-400); Red Blood Count 2.82 M/mcL (4.19-5.50); Segmented Neutrophils % 74.7 %
[2017-05-29] MEDS: *HR* Heparin 5,000 UNIT/ML VIAL SQ SCH ×2 (06:07→18:34)
[2017-05-29 06:18] LABS: Calcium 7.6 mg/dL (8.6-10.8); Potassium 3.5 mEq/L (3.5-4.5)
[2017-05-29 07:06] LABS: Anisocytosis 2+ (Not Present); Hypochromasia Present (Not Present); Platelet Estimate Decreased (Normal)
[2017-05-29] MEDS ORDERED: 0.9 % Sodium Chloride 250 ML IVC PRN (08:37)
--- NOTE | 2017-05-29 08:43 | Arterial Study Report ---
LE Arterial Physiologic Study Patient Name:Alonzo Chan Order Number:[id number] Procedure Date:05/28/2017 Date:1955ge:62 yrs Gender:Male Height: cm / inWeight:143.00 kg / 315.26 lb Rt.BP:143 / mmHgHeart Rate: Location: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 The right dorsalis pedis artery is noncompressible. Right CORDELIA 0.8. The left CORDELIA and waveforms are consistent with mild disease. Left CORDELIA 0.95. Recommendations: Risk factor reduction. Further evaluation recommended if clinically indicated. Follow-up carotid duplex in 1 year. Preliminary noted in pt EMR. Findings LE Arterial Physiologic Exam: PVR: Right: The PVR waveforms are mildly diminished in the right . Left: The PVR waveforms are mildly diminished in the left . Prior Study: No prior study available for comparison. Segmental Pressures Side Location Pressure Index Result Right Posterior Tibial 114 0.80 Right Dorsalis Pedis 254 1.78 noncompressible Left Posterior Tibial 112 0.78 Left Dorsalis Pedis 136 0.95 Ankle Brachial Index Right Systolic Diastolic CORDELIA Brachial 143 1.78 Dorsalis Pedis 254 1.78 Posterior Tibial 114 0.80 Left Systolic Diastolic CORDELIA Brachial 0.95 Dorsalis Pedis 136 0.95 Posterior Tibial 112 0.78 Updated by Alonzo Nichols MD on 05/29/2017 8:35:17 AM with Status of Final electronically signed on 05/29/2017 8:37:41 AM with status of Final
[2017-05-29] MEDS: Insulin LISPRO 300 UNITS/3 ML VIAL SQ SCH ×4 (08:57→22:35)
[2017-05-29] MEDS ORDERED: 0.9 % Sodium Chloride 2,000 ML ONE (09:00)
--- NOTE | 2017-05-29 09:00 | Internal Med Progress Note ---
Addendum entered and electronically signed by Isael Eason DO 05/29/17 17:44: CORRECTION: Patient was started on Zosyn and clindamycin on admission. Antibiotics were then discontinued afterwards. However, Zosyn was restarted today. Patient was not seen this morning by podiatry. Original Note: <Isael Eason - Last Filed: 05/29/17 08:58> Date of Encounter: 05/29/17 Time of Encounter: 08:40 - Assessment and plan (1) Diabetic ulcer of foot associated with type 2 diabetes mellitus, with necrosis of bone Current Visit: Yes Status: Acute Assessment and plan: The patient has bilateral, nonhealing chronic ulcers on his foot, most likely related to diabetes. -X-ray of his left foot shows signs of osteomyelitis. -Patient was started on Zosyn and clindamycin. -Antibiotics were discontinued per recommendation from infectious disease, stating that patient will only need antibiotics if there are signs of systemic infection. -Patient has had an adverse reaction to vancomycin in the past. -Patient was seen by podiatry this morning. Wounds were cleaned and wrapped. -May need amputation. -Vessel study was performed by surgery. Left leg CORDELIA was 0.8. Right leg CORDELIA was 0.95. This is consistent with mild disease. Surgery recommends risk factor reduction. Qualifiers: Diabetic foot ulcer location: heel Laterality: unspecified laterality Qualified Code(s): E11.621 - Type 2 diabetes mellitus with foot ulcer; L97.404 - Non-pressure chronic ulcer of unspecified heel and midfoot with necrosis of bone (2) Osteomyelitis Current Visit: Yes Status: Acute Assessment and plan: Findings on x-ray of patient's feet reveals evidence of osteomyelitis in the left foot. Qualifiers: Osteomyelitis type: unspecified type Osteomyelitis location: foot Laterality: left Qualified Code(s): M86.9 - Osteomyelitis, unspecified (3) Anemia Current Visit: Yes Status: Acute Assessment and plan: Patient has anemia, most likely due to his chronic renal disease. -Patient states that his baseline hemoglobin is approximately 8. -Patient's hemoglobin was low yesterday morning at 6.8. He was given transfusion of one unit of packed red blood cells. -Today patient's hemoglobin has increased to 7.5. Qualifiers: Anemia type: due to chronic kidney disease Chronic kidney disease stage: unspecified stage Qualified Code(s): N18.9 - Chronic kidney disease, unspecified; D63.1 - Anemia in chronic kidney disease (4) ESRD (end stage renal disease) on dialysis Current Visit: Yes Status: Chronic Assessment and plan: Patient states that he has dialysis 3 days per week. -He states that he has noticed several dialysis appointments recently due to an illness. -Patient is refusing dialysis today, because he says that the procedure performed here is not the same as the procedure performed at his regular location. (5) Hypokalemia Current Visit: Yes Status: Resolved Assessment and plan: Patient had low potassium. -He was supplemented in the emergency department. -Patient's potassium this morning was 3.5 - Subjective Interval history: Patient was seen and examined this morning. Patient denies feeling tired today. He does state that he would like to move around. Patient's feet have been wrapped, the patient still complains that there is odor emitting from his wounds. He currently denies having any fever, chills, nausea, vomiting, weakness, or fatigue. Patient states that he does not want to go to dialysis today, because it is a problem with the procedure performed. He says that the procedure performed is not the same as the procedure performed at his regular location. Patient has no other complaints at this time. - Constitutional Vitals: Temp Pulse Resp BP Pulse Ox 98.4 F 76 16 149/51 97 05/29/17 08:20 05/29/17 08:20 05/29/17 08:20 05/29/17 08:20 05/29/17 08:20 General appearance: Present: no acute distress - Head Head exam: Present: atraumatic, normocephalic - Respiratory Respiratory exam: Present: CTAB. Absent: accessory muscle use, rales, rhonchi, wheezes - Cardiovascular Cardiovascular exam: Present: RRR, +S1, +S2. Absent: diastolic murmur, gallop, rubs, systolic murmur - Skin Skin exam: Present: dry, intact Internal Medicine: Result - Labs CBC & Chem 7: 05/29/17 05:45 05/29/17 05:45 Labs: Short CBC 05/29/17 Range/Units 05:45 WBC 7.7 (4.3-11.1) K/mcL Hgb 7.5 L (12.9-16.9) g/dL Hct 25.5 L (37.5-50.1) % Plt Count 139 L (140-400) K/mcL Neutrophils # 5.8 (1.6-8.9) K/mcL BMP 05/29/17 05:45 Sodium 134 L Potassium 3.5 Chloride 98 Carbon Dioxide 31 H BUN 31 H Creatinine 5.01 H Glucose 203 H Calcium 7.6 L - ABG Interpretation ABG results: ABG ABG pH 7.61 pH Units (7.32-7.45) H* 05/25/17 20:18 ABG pCO2 35 mmHg (35-45) 05/25/17 20:18 ABG pO2 86 mmHg (85-104) 05/25/17 20:18 ABG O2 Saturation 98 % (95-98) 05/25/17 20:18 PT/INR, D-dimer PT 17.6 Seconds (9.4-12.1) H 05/25/17 19:41 Consult Discharge Plan - Plan Referrals: Jarad Galeana MD [Primary Care Provider] - 06/02/17 10:00 am <Nii Mcghee - Last Filed: 05/29/17 17:55> Date of Encounter: 05/29/17 - Constitutional Vitals: Temp Pulse Resp BP Pulse Ox 98.3 F 84 21 139/68 96 05/29/17 16:29 05/29/17 16:29 05/29/17 16:29 05/29/17 16:29 05/29/17 16:29 Internal Medicine: Result - Labs CBC & Chem 7: 05/29/17 05:45 05/29/17 05:45 Labs: Short CBC 05/29/17 Range/Units 05:45 WBC 7.7 (4.3-11.1) K/mcL Hgb 7.5 L (12.9-16.9) g/dL Hct 25.5 L (37.5-50.1) % Plt Count 139 L (140-400) K/mcL Neutrophils # 5.8 (1.6-8.9) K/mcL BMP 05/29/17 05:45 Sodium 134 L Potassium 3.5 Chloride 98 Carbon Dioxide 31 H BUN 31 H Creatinine 5.01 H Glucose 203 H Calcium 7.6 L - ABG Interpretation ABG results: ABG ABG pH 7.61 pH Units (7.32-7.45) H* 05/25/17 20:18 ABG pCO2 35 mmHg (35-45) 05/25/17 20:18 ABG pO2 86 mmHg (85-104) 05/25/17 20:18 ABG O2 Saturation 98 % (95-98) 05/25/17 20:18 PT/INR, D-dimer PT 17.6 Seconds (9.4-12.1) H 05/25/17 19:41 - Attending Attestation I examined this patient and my medical decision-making was reviewed with the Resident Physician on 05/29/17. I agree with the documented findings, disposition and treatment plan as described except to the extent set forth below. Mr. Chan has a PMH of ESRD on HD, not compliant with HD or medications, DM with chronic DM foot ulcers, PAD, CAD, chronic anemia on EPO He is admitted and being managed for Right toe OM, and necrotic bilateral heel ulcers that are suspected to be infected. Today he has no new complains. Vascular eval included CORDELIA which revealed mild disease on the right and normal left study. Patient refused other arterial imaging. Wound culture this morning revealed GNR and GPR. Patient has been restarted on Zosyn at renal dosing empirically On exam, patient is cachectic and in no form of distress, chest is CTAB, Wound dressings on both extremities soaked and foul-smelling, lower extremities with bilateral necrotic heel ulcers, fluctuant, not tender, mild surrounding erythema , Right big toe with punched out wound draining foul-smelling discharge, Right great toe with healed ulcer, Right plantar surface with a smaller necrotic ulcer. Pulses are present but diminished Labs and Imaging reviewed Patient's antibiotics were discontinued 05/26 p.m, per ID recommendations, Zosyn restarted today 05/29 based on wound culture of L big toe (OM). Podiatry eval noted-no plan for surgical intervention for now, recommends wound care, with enzymatic debridement, continue same Consulted with vascular surgery for possible revascularization/more testing. CORDELIA noted. Further review is pending. Nephrology is following for ESRD and anemia, input appreciated Electric wheelchair may only be recommended by a certified PT MD, this may be done by PT O-P/In-patient rehab Discharge disposition is to SNF if no surgical /vascular intervention is planned.... Rest of details as in resident physician's documentation
[2017-05-29] MEDS: Piperacillin/Tazobactam 3.375 GM in D5% in Water (Mini-Bag+) 100 ML IVPB SCH ×2 (10:50→18:35)
--- NOTE | 2017-05-29 11:16 | Nephrology Progress Note ---
Date of Encounter: 05/29/17 Time of Encounter: 11:14 - Assessment and Plan (1) Anemia Current Visit: Yes Status: Acute Monitor hemoglobin. Transfuse as needed. Qualifiers: Anemia type: due to chronic kidney disease Chronic kidney disease stage: unspecified stage Qualified Code(s): N18.9 - Chronic kidney disease, unspecified; D63.1 - Anemia in chronic kidney disease (2) Diabetic ulcer of foot associated with type 2 diabetes mellitus, with necrosis of bone Current Visit: Yes Status: Acute Per podiatry and vascular surgery. He reports having a work-up on an outpatient basis by Dr. Hoffman (?sp) at [facility]. Recommend requesting records. Qualifiers: Diabetic foot ulcer location: heel Laterality: unspecified laterality Qualified Code(s): E11.621 - Type 2 diabetes mellitus with foot ulcer; L97.404 - Non-pressure chronic ulcer of unspecified heel and midfoot with necrosis of bone (3) ESRD (end stage renal disease) on dialysis Current Visit: Yes Status: Chronic HD scheduled MWF. He is refusing to go today. No uremic symptoms. Plan for dialysis on Thursday. (4) Diabetes mellitus Current Visit: Yes Status: Acute Per primary team. Qualifiers: Qualified Code(s): E11.9 - Type 2 diabetes mellitus without complications Subjective Principal diagnosis: osteomyelitits, ESRD on dialysis Interval history: Mr. Chan is a 62 yo man with a history of ESRD who is here for management of bilateral heel wounds. He refused dialysis this am. He denies uremic symptoms. He has no new complaints. His review of systems is overall negative or stable. Objective - Vital Signs Vital signs: Vital Signs Temp Pulse Resp BP Pulse Ox 05/29/17 10:59 98.3 F 82 15 154/78 99 05/29/17 08:20 98.4 F 76 16 149/51 97 05/29/17 04:36 98.6 F 79 15 139/73 95 05/29/17 01:18 98.3 F 76 17 125/52 97 05/28/17 19:40 98.5 F 79 16 123/57 98 05/28/17 16:40 98.2 F 73 18 129/55 99 05/28/17 14:10 98.3 F 74 16 138/66 99 05/28/17 11:33 97.9 F 76 16 148/77 05/28/17 11:18 97.7 F 80 16 141/79 99 Intake and Output 05/28/17 05/29/17 05/29/17 23:59 07:59 15:59 Intake Total 560 / 560 Output Total 0 / 0 Balance 0 / 0 560 / 560 Intake: Oral 560 / 560 Output: Urine 0 / 0 Other: Meal Breakfast Percent of Meal Consumed 100% Weight 83.12 kg Blood Glucose* 201 178 Patient Weight 05/29/17 23:59 Weight 83.12 kg - General Appearance General appearance: Present: well-developed, well-nourished EENT: Present: ATNC Neck: Present: supple Additional Comments: Respirations are unlabored Cardiology: Present: regular rate Neurologic: Present: alert and oriented x3 Psychiatric: Present: mood/affect appropriate - Lab 05/29/17 05:45 05/29/17 05:45 Most recent lab results ABG pH 7.61 pH Units (7.32-7.45) H* 05/25/17 20:18 ABG pCO2 35 mmHg (35-45) 05/25/17 20:18 ABG pO2 86 mmHg (85-104) 05/25/17 20:18 ABG HCO3 35.2 mEQ/L (21-27) H 05/25/17 20:18 ABG O2 Saturation 98 % (95-98) 05/25/17 20:18 Calcium 7.6 mg/dL (8.6-10.8) L 05/29/17 05:45 Phosphorus 3.6 mg/dL (2.3-4.7) 05/26/17 04:37 Magnesium 1.4 mg/dL (1.6-2.6) L 05/26/17 04:37 Consult Discharge Plan - Plan Referrals: Jarad Galeana MD [Primary Care Provider] - 06/02/17 10:00 am
--- NOTE | 2017-05-29 17:43 | Vascular/Endovasc Consult Note ---
Date of Encounter: 05/29/17 Time of Encounter: 17:40 Assessment and Plan (1) Osteomyelitis Current Visit: Yes Status: Acute Treatment plan outlined by Dr. Perez. The waveform in ankle-brachial index indicates mild arterial disease at the level of the ankle. I do not think that revascularization or workup for revascularization is indicated. The patient may require amputation if the level of necrosis worsens. Treatment plan outlined by Dr. Perez Qualifiers: Osteomyelitis type: unspecified type Osteomyelitis location: foot Laterality: left Qualified Code(s): M86.9 - Osteomyelitis, unspecified - History of Present Illness Consult date: 05/29/17 Consult reason: Vascular assessment Chief complaint: Multiple ulcers both feet History of present illness: Mr. Chan is a 62 year old male He is on dialysis and has severe peripheral neuropathy. He had a detailed and accurate assessment by Dr. Perez on 05/26/2017. In that consult note he documented the ulcers involving both of the feet. Also in that consult note he documented that the patient does not want any vascular workup. The patient underwent noninvasive vascular testing. The patient has mild peripheral vascular disease at the level of the ankle by ankle brachial index and waveforms evaluation. The patient obviously has small vessel disease in conjunction with neuropathy leading to multiple pressure injuries of both lower extremities. This is well documented. Based on the ankle brachial index and waveforms evaluation as well as evaluation by Dr. Perez no further vascular workup is necessary. I would not recommend arteriogram. The patient should have aggressive pressure offloading of both lower extremities Past Med Surg Social Fam HX - Past Medical History Medical history: diabetes, hypertension, peripheral artery disease, renal disease (ESRD on HD ), other (Chronic bilateral foot ulcers) Psychiatric history: anxiety, depression - Past Surgical History Surgical History: coronary bypass (CABG), other (Left foot 4th and 5th toe amputation, osteotomy #5 metatarsal right foot) - Social History Smoking Status: Former smoker Smokeless Tobacco Status: No Alcohol use: none Drug use: none - Family History Mother Hx Family Endocrine Disorder: Yes (Diabetes) Medications and Allergies Doxycycline [Doxycycline] 100 mg PO BID 05/25/17 [History] Lidocaine/Prilocaine [Emla] 1 appl TP AD PRN 05/25/17 [History] Allergies vancomycin Adverse Reaction (Verified 05/26/17 14:42) See Comments SARAH/Red Man Syndrome All Systems Review: A 10-system review of systems was performed and is negative for pertinent findings except as documented above in the HPI. Exam Vital Signs, Last 4 Hours Temp Pulse Resp BP Pulse Ox 05/29/17 16:29 98.3 F 84 21 139/68 96 General: Present: Other (Chronically ill-appearing and bedridden) HEENT: Present: Trachea midline, Pupils equal Cardiac: Present: Reg Rate and Rhythm, Normal S1 and S2, No Murmur Lungs: Present: Normal Breath Sounds, No Wheeze, Rales, Rhonchi Neuro: Present: Other (Severe peripheral neuropathy) Abdomen: Present: Soft, Non-tender Vascular: Present: Other (Femoral pulses normal muscle wasting below the knee) Skin: Present: Wound/ulcer(s) (Multiple ulcers both feet. These appear to be a combination of microvascular ischemic and pressure) Consult Discharge Plan - Plan Referrals: Jarad Galeana MD [Primary Care Provider] - 06/02/17 10:00 am
[2017-05-30 06:23] LABS: Basophils % 0.3 %; Eosinophils # 0.2 K/mcL (0.0-0.6); Eosinophils % 1.8 %; Hematocrit 27.3 % (37.5-50.1); Hemoglobin 8.1 g/dL (12.9-16.9); Immature Granulocytes % 2.5 % (0-4); Lymphocytes # 1.7 K/mcL (0.6-4.6); Lymphocytes % 17.4 %; Mean Corpuscular HGB Conc 29.7 g/dL (31.6-35.5); Mean Corpuscular Hemoglobin 26.6 pg (28.0-33.3); Mean Corpuscular Volume 89.5 fL (83.0-100.0); Mean Platelet Volume 10.9 fL (9.4-12.4); Monocytes # 0.5 K/mcL (0.0-1.3); Monocytes % 4.8 %; Platelet Count 156 K/mcL (140-400); Red Blood Count 3.05 M/mcL (4.19-5.50); Segmented Neutrophils % 73.2 %
[2017-05-30 06:28] LABS: Potassium 4.1 mEq/L (3.5-4.5)
[2017-05-30] MEDS: Piperacillin/Tazobactam 3.375 GM in D5% in Water (Mini-Bag+) 100 ML IVPB SCH ×2 (06:54→17:16)
[2017-05-30] MEDS: *HR* Heparin 5,000 UNIT/ML VIAL SQ SCH ×2 (06:55→17:57)
[2017-05-30] MEDS ORDERED: Levofloxacin 750 MG/150 ML 750 MG/150 ML BAG IVPB SCH (08:00)
[2017-05-30] MEDS: Insulin LISPRO 300 UNITS/3 ML VIAL SQ SCH ×4 (08:55→20:47)
--- NOTE | 2017-05-30 09:49 | Nephrology Progress Note ---
Date of Encounter: 05/30/17 Time of Encounter: 09:46 - Assessment and Plan (1) Anemia Current Visit: Yes Status: Acute Monitor hemoglobin. Transfuse as needed. Qualifiers: Anemia type: due to chronic kidney disease Chronic kidney disease stage: unspecified stage Qualified Code(s): N18.9 - Chronic kidney disease, unspecified; D63.1 - Anemia in chronic kidney disease (2) Diabetic ulcer of foot associated with type 2 diabetes mellitus, with necrosis of bone Current Visit: Yes Status: Acute Per podiatry and vascular surgery. Monitor for improvement vs. need for amputation. Qualifiers: Diabetic foot ulcer location: heel Laterality: unspecified laterality Qualified Code(s): E11.621 - Type 2 diabetes mellitus with foot ulcer; L97.404 - Non-pressure chronic ulcer of unspecified heel and midfoot with necrosis of bone (3) ESRD (end stage renal disease) on dialysis Current Visit: Yes Status: Chronic HD scheduled MWF. He is only agreeable to twice weekly dialysis. No uremic symptoms. Plan for dialysis on Thursday. (4) Diabetes mellitus Current Visit: Yes Status: Acute Per primary team. Qualifiers: Diabetes mellitus type: other specified (including TRAVON) Qualified Code(s) : E13.00 - Other specified diabetes mellitus with hyperosmolarity without nonketotic hyperglycemic-hyperosmolar coma ([facility]) Subjective Principal diagnosis: osteomyelitits, ESRD on dialysis Interval history: Mr. Chan is a 62 yo man with a history of ESRD who is here for management of bilateral heel wounds. He is agreeable to dialysis on Thursday. He denies uremic symptoms. He has no new complaints. His review of systems is overall negative or stable. Objective - Vital Signs Vital signs: Vital Signs Temp Pulse Resp BP Pulse Ox 05/30/17 07:22 98.5 F 79 16 145/78 97 05/30/17 04:26 98.7 F 76 18 124/51 95 05/29/17 23:49 98.9 F 77 16 133/63 98 05/29/17 19:31 98.7 F 78 18 127/63 98 05/29/17 16:29 98.3 F 84 21 139/68 96 05/29/17 10:59 98.3 F 82 15 154/78 99 Intake and Output 05/29/17 05/30/17 05/30/17 23:59 07:59 15:59 Intake Total 310 / 310 360 / 360 Output Total Balance 310 / 310 -10 / -10 360 / 360 Intake: IV Fluids 100 / 100 Zosyn 3.375 GM In 100 / 100 Dextrose 5% (Minibag+) 100 ML 100 ML @ 25 mls/hr IVPB Q12HR BENNY Rx#: [id number] Oral 210 / 210 360 / 360 Output: Urine Other: Meal Dinner Breakfast Percent of Meal Consumed 100% 100% Stool Size Small Small Moderate Stool Consistency loose loose soft Stool Color Brown Brown Brown # Bowel Movements 1 Weight 85.4 kg Blood Glucose* 202 141 Patient Weight 05/30/17 23:59 Weight 85.4 kg - General Appearance General appearance: Present: well-developed, well-nourished EENT: Present: ATNC Neck: Present: supple Additional Comments: respirations are unlabored Cardiology: Present: regular rate Neurologic: Present: alert and oriented x3 Psychiatric: Present: mood/affect appropriate - Lab 05/30/17 05:35 05/30/17 05:35 Most recent lab results ABG pH 7.61 pH Units (7.32-7.45) H* 05/25/17 20:18 ABG pCO2 35 mmHg (35-45) 05/25/17 20:18 ABG pO2 86 mmHg (85-104) 05/25/17 20:18 ABG HCO3 35.2 mEQ/L (21-27) H 05/25/17 20:18 ABG O2 Saturation 98 % (95-98) 05/25/17 20:18 Calcium 8.0 mg/dL (8.6-10.8) L 05/30/17 05:35 Phosphorus 3.6 mg/dL (2.3-4.7) 05/26/17 04:37 Magnesium 1.4 mg/dL (1.6-2.6) L 05/26/17 04:37 Consult Discharge Plan - Plan Referrals: Jarad Galeana MD [Primary Care Provider] - 06/02/17 10:00 am
--- NOTE | 2017-05-30 10:57 | Internal Med Progress Note ---
Date of Encounter: 05/30/17 Time of Encounter: 09:15 - Assessment and plan (1) Diabetic ulcer of foot associated with type 2 diabetes mellitus, with necrosis of bone Current Visit: Yes Status: Acute Assessment and plan: The patient has bilateral, non-healing chronic ulcers on his foot, most likely related to diabetes. Patient was started on Zosyn and clindamycin on admission, discontinued on recommendation of INfectious disease Podiatry and vascular eval noted, no surgical intervention, patient having BID wound dressings Discharge disposition is for in-patient rehab Qualifiers: Diabetic foot ulcer location: heel Laterality: unspecified laterality Qualified Code(s): E11.621 - Type 2 diabetes mellitus with foot ulcer; L97.404 - Non-pressure chronic ulcer of unspecified heel and midfoot with necrosis of bone (2) Osteomyelitis Current Visit: Yes Status: Acute Assessment and plan: Findings on x-ray of patient's feet reveals evidence of osteomyelitis in the left foot. Wound over LEft big toe with GPR and GNR Started on Zosyn 05/29 and levoflox 05/30 based on this culture reports He states he has had a bone biopsy and was placed on doxycycline for his osteomyelitis, resumed same Continue wound dressing Qualifiers: Osteomyelitis type: unspecified type Osteomyelitis location: foot Laterality: left Qualified Code(s): M86.9 - Osteomyelitis, unspecified (3) ESRD (end stage renal disease) on dialysis Current Visit: Yes Status: Chronic Assessment and plan: HD MWF Patient however chooses when to go to dialysis and when not to His electrolytes are acceptable Renal is following, input appreciated (4) CAD (coronary artery disease) Current Visit: Yes Status: Chronic Qualifiers: Coronary Disease-Associated Artery/Lesion type: bypass graft [place] vs. transplanted heart: [place] heart Associated angina: without angina Qualified Code(s): I25.810 - Atherosclerosis of coronary artery bypass graft(s) without angina pectoris (5) Anemia Current Visit: Yes Status: Acute Assessment and plan: Patient has anemia, most likely due to his chronic renal disease. -Patient states that his baseline hemoglobin is approximately 8. He has received 2 units of blood in this admission Hb today is stable Qualifiers: Anemia type: due to chronic kidney disease Chronic kidney disease stage: unspecified stage Qualified Code(s): N18.9 - Chronic kidney disease, unspecified; D63.1 - Anemia in chronic kidney disease (6) Diabetes mellitus Current Visit: Yes Status: Chronic Assessment and plan: FS uncontrolled Check A1C with a.m labs FS ACHS Start levemir Continue lispro Qualifiers: Diabetes mellitus type: type 2 Diabetes mellitus complication status: with kidney complications Diabetes mellitus tank terminal gauger insulin use: without tank terminal gauger use Chronic kidney disease stage: on chronic dialysis Qualified Code(s) : E11.22 - Type 2 diabetes mellitus with diabetic chronic kidney disease; N18.6 - End stage renal disease; Z99.2 - Dependence on renal dialysis - Subjective Interval history: Mr. Chan has a PMH of ESRD on HD, not compliant with HD or medications, DM with chronic DM foot ulcers, PAD, CAD, chronic anemia on EPO He is admitted and being managed for Right toe OM, and necrotic bilateral heel ulcers that are suspected to be infected. Today he has no new complains. Vascular input appreciated. 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 His wound culture has GNR and GPR-identified as stenotrophomonas maltophilia sensitive to bacrim and Levoflox. He has been started on Levoflox. I have also resumed his doxycycline, as we have no bone culture reports here. He is otherwise stable and awaiting placement for SNF No surgical intervention is planned for his necrotic ulcers at this time - Constitutional Vitals: Temp Pulse Resp BP Pulse Ox 98.5 F 79 16 145/78 97 05/30/17 07:22 05/30/17 07:22 05/30/17 07:22 05/30/17 07:22 05/30/17 07:22 General appearance: Present: A&O X 3, pleasant, no acute distress - Head Head exam: Present: atraumatic, normocephalic - Eye Eye exam: Present: PERRL, conjuntiva pink, sclera anicteric Pupils: Present: PERRL - Neck Neck exam general surgery: Present: supple, trachea midline. Absent: lymphadenopathy - Respiratory Respiratory exam: Present: CTAB. Absent: accessory muscle use, rales, rhonchi, wheezes - Cardiovascular Cardiovascular exam: Present: RRR, +S1, +S2. Absent: diastolic murmur, gallop, rubs, systolic murmur - GI/Abdominal GI/Abdominal exam: Present: normal bowel sounds, soft, no peritoneal signs. Absent: distended, tenderness - Extremities Exam Extremities exam: Present: pedal edema, warm. Absent: calf tenderness, cyanotic Additional comments: Wound dressings on both extremities soaked and foul-smelling, lower extremities with bilateral necrotic heel ulcers, fluctuant, not tender, mild surrounding erythema, Right big toe with punched out wound draining foul-smelling discharge , Right great toe with healed ulcer, Right plantar surface with a smaller necrotic ulcer. Pulses are present but diminished - Neurological Exam Neurological exam: Present: alert, CN II-XII intact, oriented X3, no focal deficits. Absent: pronater drift, facial droop, speech deficit - Skin Skin exam: Present: dry Internal Medicine: Result - Labs CBC & Chem 7: 05/30/17 05:35 05/30/17 05:35 Labs: Short CBC 05/30/17 Range/Units 05:35 WBC 9.5 (4.3-11.1) K/mcL Hgb 8.1 L (12.9-16.9) g/dL Hct 27.3 L (37.5-50.1) % Plt Count 156 (140-400) K/mcL Neutrophils # 7.0 (1.6-8.9) K/mcL BMP 05/30/17 05:35 Sodium 133 L Potassium 4.1 Chloride 95 L Carbon Dioxide 28 BUN 40 H Creatinine 6.06 H Glucose 139 H Calcium 8.0 L - ABG Interpretation ABG results: ABG ABG pH 7.61 pH Units (7.32-7.45) H* 05/25/17 20:18 ABG pCO2 35 mmHg (35-45) 05/25/17 20:18 ABG pO2 86 mmHg (85-104) 05/25/17 20:18 ABG O2 Saturation 98 % (95-98) 05/25/17 20:18 PT/INR, D-dimer PT 17.6 Seconds (9.4-12.1) H 05/25/17 19:41 Consult Discharge Plan - Plan Referrals: Jarad Galeana MD [Primary Care Provider] - 06/02/17 10:00 am
[2017-05-30] MEDS: Levofloxacin 750 MG/150 ML 750 MG/150 ML BAG IVPB SCH (11:41)
[2017-05-30] MEDS: Doxycycline 100 MG CAPSULE PO SCH (20:47)
[2017-05-30] MEDS: Insulin DETEMIR 100 UNIT/ML X5UNITS SQ SCH (20:47)
[2017-05-31 04:50] LABS: Basophils % 0.3 %; Eosinophils # 0.2 K/mcL (0.0-0.6); Eosinophils % 1.9 %; Hemoglobin 7.3 g/dL (12.9-16.9); Immature Granulocytes % 4.2 % (0-4); Lymphocytes # 1.2 K/mcL (0.6-4.6); Lymphocytes % 15.7 %; Mean Corpuscular HGB Conc 30.4 g/dL (31.6-35.5); Mean Corpuscular Hemoglobin 26.9 pg (28.0-33.3); Mean Corpuscular Volume 88.6 fL (83.0-100.0); Mean Platelet Volume 10.4 fL (9.4-12.4); Monocytes # 0.5 K/mcL (0.0-1.3); Monocytes % 6.8 %; Neutrophils # 5.6 K/mcL (1.6-8.9); Platelet Count 115 K/mcL (140-400); Red Blood Count 2.71 M/mcL (4.19-5.50); Red Cell Distribution Width 17.9 % (11.5-14.5); Segmented Neutrophils % 71.1 %
[2017-05-31 04:58] LABS: Hemoglobin A1C 6.4 %
[2017-05-31 05:03] LABS: Calcium 7.7 mg/dL (8.6-10.8); Potassium 4.7 mEq/L (3.5-4.5)
[2017-05-31] MEDS: Piperacillin/Tazobactam 3.375 GM in D5% in Water (Mini-Bag+) 100 ML IVPB SCH ×2 (05:23→17:04)
[2017-05-31] MEDS: *HR* Heparin 5,000 UNIT/ML VIAL SQ SCH ×2 (05:24→17:19)
[2017-05-31] MEDS: Doxycycline 100 MG CAPSULE PO SCH ×2 (08:23→21:00)
[2017-05-31] MEDS: Insulin LISPRO 300 UNITS/3 ML VIAL SQ SCH ×4 (09:06→20:59)
--- NOTE | 2017-05-31 09:57 | Nephrology Progress Note ---
Date of Encounter: 05/31/17 Time of Encounter: 09:54 - Assessment and Plan (1) Anemia Current Visit: Yes Status: Acute Monitor hemoglobin. Transfuse as needed. Hemoglobin stable. Will start Aranesp. Qualifiers: Anemia type: due to chronic kidney disease Chronic kidney disease stage: unspecified stage Qualified Code(s): N18.9 - Chronic kidney disease, unspecified; D63.1 - Anemia in chronic kidney disease (2) Diabetic ulcer of foot associated with type 2 diabetes mellitus, with necrosis of bone Current Visit: Yes Status: Acute Per podiatry and vascular surgery. Monitor for improvement vs. need for amputation. Nonsurgical management for now. Will need rehab. Qualifiers: Diabetic foot ulcer location: heel Laterality: unspecified laterality Qualified Code(s): E11.621 - Type 2 diabetes mellitus with foot ulcer; L97.404 - Non-pressure chronic ulcer of unspecified heel and midfoot with necrosis of bone (3) ESRD (end stage renal disease) on dialysis Current Visit: Yes Status: Chronic HD scheduled MWF. He is only agreeable to twice weekly dialysis. No uremic symptoms. Plan for dialysis on Thursday. (4) Diabetes mellitus Current Visit: Yes Status: Chronic Per primary team. Qualifiers: Diabetes mellitus type: type 2 Diabetes mellitus complication status: with kidney complications Diabetes mellitus custodial insulin use: without custodial use Chronic kidney disease stage: on chronic dialysis Qualified Code(s) : E11.22 - Type 2 diabetes mellitus with diabetic chronic kidney disease; N18.6 - End stage renal disease; Z99.2 - Dependence on renal dialysis Subjective Principal diagnosis: osteomyelitits, ESRD on dialysis Interval history: Mr. Chan is a 62 yo man with a history of ESRD who is here for management of bilateral heel wounds. He is agreeable to dialysis on Thursday. He denies uremic symptoms. He has no new complaints. His review of systems is overall negative or stable. Objective - Vital Signs Vital signs: Vital Signs Temp Pulse Resp BP Pulse Ox 05/31/17 07:19 98.3 F 75 16 143/78 98 05/30/17 23:29 98.1 F 77 16 144/76 99 05/30/17 19:33 98.5 F 67 16 130/68 98 05/30/17 15:59 98.1 F 78 18 123/49 98 05/30/17 11:30 97.8 F 72 16 144/70 97 Intake and Output 05/30/17 05/31/17 05/31/17 23:59 07:59 15:59 Intake Total 220 / 220 0 / 0 100 / 100 Output Total 100 / 100 130 / 130 Balance 120 / 120 -130 / -130 100 / 100 Intake: IV Fluids 100 / 100 Zosyn 3.375 GM In 100 / 100 Dextrose 5% (Minibag+) 100 ML 100 ML @ 25 mls/hr IVPB Q12HR B[facility] Rx#: [id number] Oral 120 / 120 0 / 0 100 / 100 Output: Urine 100 / 100 130 / 130 Other: Meal Dinner Breakfast Percent of Meal Consumed 95% 60% Stool Size Small Stool Consistency loose Stool Color Brown Yellow Green # Bowel Movements 1 Weight 86 kg Blood Glucose* 195 105 Patient Weight 05/31/17 23:59 Weight 86 kg - General Appearance General appearance: Present: well-developed, well-nourished Exam: Sitting in a wheelchair Neck: Present: supple Respiratory: Present: clear Cardiology: Present: regular rate Dialysis Vascular Access: Arteriovenous Fistula (left forearm) thrill: Yes bruit: Yes Integumentary: Present: warm and dry Neurologic: Present: alert and oriented x3 Psychiatric: Present: mood/affect appropriate - Lab 05/31/17 03:15 05/31/17 03:15 Most recent lab results ABG pH 7.61 pH Units (7.32-7.45) H* 05/25/17 20:18 ABG pCO2 35 mmHg (35-45) 05/25/17 20:18 ABG pO2 86 mmHg (85-104) 05/25/17 20:18 ABG HCO3 35.2 mEQ/L (21-27) H 05/25/17 20:18 ABG O2 Saturation 98 % (95-98) 05/25/17 20:18 Calcium 7.7 mg/dL (8.6-10.8) L 05/31/17 03:15 Phosphorus 3.6 mg/dL (2.3-4.7) 05/26/17 04:37 Magnesium 1.4 mg/dL (1.6-2.6) L 05/26/17 04:37 Consult Discharge Plan - Plan Referrals: Jarad Galeana MD [Primary Care Provider] - 06/02/17 10:00 am
--- NOTE | 2017-05-31 12:06 | Internal Med Progress Note ---
Date of Encounter: 05/31/17 Time of Encounter: 09:40 - Assessment and plan (1) Diabetic ulcer of foot associated with type 2 diabetes mellitus, with necrosis of bone Current Visit: Yes Status: Acute Assessment and plan: Patient with bilateral, non-healing necrotic heel ulcers on his foot, most likely related to diabetes. Patient was started on Zosyn and clindamycin on admission, discontinued on recommendation of INfectious disease Podiatry and vascular eval noted, no surgical intervention, patient having BID wound dressings Discharge disposition is for in-patient rehab Qualifiers: Diabetic foot ulcer location: heel Laterality: unspecified laterality Qualified Code(s): E11.621 - Type 2 diabetes mellitus with foot ulcer; L97.404 - Non-pressure chronic ulcer of unspecified heel and midfoot with necrosis of bone (2) Osteomyelitis Current Visit: Yes Status: Acute Assessment and plan: Findings on x-ray of patient's feet reveals evidence of osteomyelitis in the left big toe Wound over LEft big toe with GPR and GNR Started on Zosyn 05/29 and levoflox 05/30 based on this culture reports Started on po doxyxycline based on self-reported bone biopsy reports and chronic use of doxy, continue same Continue wound dressing No surgical intervention is planned Qualifiers: Osteomyelitis type: unspecified type Osteomyelitis location: foot Laterality: left Qualified Code(s): M86.9 - Osteomyelitis, unspecified (3) ESRD (end stage renal disease) on dialysis Current Visit: Yes Status: Chronic Assessment and plan: HD MWF Patient however chooses when to go to dialysis and when not to His electrolytes are acceptable Renal is following, input appreciated (4) CAD (coronary artery disease) Current Visit: Yes Status: Chronic Qualifiers: Coronary Disease-Associated Artery/Lesion type: bypass graft [place] vs. transplanted heart: [place] heart Associated angina: without angina Qualified Code(s): I25.810 - Atherosclerosis of coronary artery bypass graft(s) without angina pectoris (5) Anemia Current Visit: Yes Status: Acute Assessment and plan: Patient has acute on chronic anemia of renal disease He is s/p 4 units RBC in this admission Hb stable Qualifiers: Anemia type: due to chronic kidney disease Chronic kidney disease stage: unspecified stage Qualified Code(s): N18.9 - Chronic kidney disease, unspecified; D63.1 - Anemia in chronic kidney disease (6) Diabetes mellitus Current Visit: Yes Status: Chronic Assessment and plan: FS uncontrolled A1C 05/31- 6.4% FS ACHS Decrease dose of levemir Continue lispro Qualifiers: Diabetes mellitus type: type 2 Diabetes mellitus complication status: with kidney complications Diabetes mellitus skilled nursing insulin use: without regional intermodal truck driver use Chronic kidney disease stage: on chronic dialysis Qualified Code(s) : E11.22 - Type 2 diabetes mellitus with diabetic chronic kidney disease; N18.6 - End stage renal disease; Z99.2 - Dependence on renal dialysis - Subjective Interval history: Mr. Chan has a PMH of ESRD on HD, not compliant with HD or medications, DM with chronic DM foot ulcers, PAD, CAD, chronic anemia on EPO He is admitted and being managed for Right toe OM, and necrotic bilateral heel ulcers that are suspected to be infected. Today he has no new complains. Vascular input appreciated. His wound culture has GNR and GPR-identified as stenotrophomonas maltophilia sensitive to bactrim and Levoflox. He has been started on Levoflox 05/30 and po doxycycline 05/31 due to his self- stated report of bone biopsy. - Constitutional Vitals: Temp Pulse Resp BP Pulse Ox 98.1 F 70 16 123/66 97 05/31/17 11:11 05/31/17 11:11 05/31/17 11:11 05/31/17 11:11 05/31/17 11:11 General appearance: Present: A&O X 3, pleasant, no acute distress - Head Head exam: Present: atraumatic, normocephalic - Eye Eye exam: Present: PERRL, conjuntiva pink, sclera anicteric Pupils: Present: PERRL - Neck Neck exam general surgery: Present: supple, trachea midline. Absent: lymphadenopathy - Respiratory Respiratory exam: Present: CTAB. Absent: accessory muscle use, rales, rhonchi, wheezes - Cardiovascular Cardiovascular exam: Present: RRR, +S1, +S2. Absent: diastolic murmur, gallop, rubs, systolic murmur - GI/Abdominal GI/Abdominal exam: Present: normal bowel sounds, soft, no peritoneal signs. Absent: distended, tenderness - Extremities Exam Extremities exam: Present: pedal edema, warm, radial pulses palpable and symetrical. Absent: calf tenderness, cyanotic Additional comments: Wound dressings on both extremities dry, lower extremities with bilateral necrotic heel ulcers, fluctuant, not tender, mild surrounding erythema, Right big toe with punched out wound draining foul-smelling discharge, Right great toe with healed ulcer, Right plantar surface with a smaller necrotic ulcer. Pulses are present but diminished - Neurological Exam Neurological exam: Present: alert, CN II-XII intact, oriented X3, no focal deficits. Absent: pronater drift, facial droop, speech deficit - Skin Skin exam: Present: dry Internal Medicine: Result - Labs CBC & Chem 7: 05/31/17 03:15 05/31/17 03:15 Labs: Short CBC 05/31/17 Range/Units 03:15 WBC 7.9 (4.3-11.1) K/mcL Hgb 7.3 L (12.9-16.9) g/dL Hct 24.0 L (37.5-50.1) % Plt Count 115 L (140-400) K/mcL Neutrophils # 5.6 (1.6-8.9) K/mcL BMP 05/31/17 03:15 Sodium 131 L Potassium 4.7 H Chloride 95 L Carbon Dioxide 26 BUN 51 H D Creatinine 6.65 H Glucose 107 H Calcium 7.7 L - ABG Interpretation ABG results: ABG ABG pH 7.61 pH Units (7.32-7.45) H* 05/25/17 20:18 ABG pCO2 35 mmHg (35-45) 05/25/17 20:18 ABG pO2 86 mmHg (85-104) 05/25/17 20:18 ABG O2 Saturation 98 % (95-98) 05/25/17 20:18 PT/INR, D-dimer PT 17.6 Seconds (9.4-12.1) H 05/25/17 19:41 Consult Discharge Plan - Plan Referrals: Jarad Galeana MD [Primary Care Provider] - 06/02/17 10:00 am
[2017-05-31] MEDS: Insulin DETEMIR 100 UNIT/ML X5UNITS SQ SCH (21:00)
[2017-05-31] MEDS ORDERED: Melatonin 3 MG TABLET PO PRN (22:05)
[2017-06-01 04:49] LABS: Basophils % 0.6 %; Eosinophils # 0.1 K/mcL (0.0-0.6); Eosinophils % 1.9 %; Hemoglobin 6.9 g/dL (12.9-16.9); Immature Granulocytes % 4.2 % (0-4); Lymphocytes # 1.2 K/mcL (0.6-4.6); Lymphocytes % 17.8 %; Mean Corpuscular Hemoglobin 26.3 pg (28.0-33.3); Mean Corpuscular Volume 87.8 fL (83.0-100.0); Mean Platelet Volume 10.1 fL (9.4-12.4); Monocytes # 0.5 K/mcL (0.0-1.3); Monocytes % 7.4 %; Neutrophils # 4.7 K/mcL (1.6-8.9); Platelet Count 116 K/mcL (140-400); Red Blood Count 2.62 M/mcL (4.19-5.50); Segmented Neutrophils % 68.1 %
[2017-06-01 05:10] LABS: Calcium 7.6 mg/dL (8.6-10.8); Potassium 4.5 mEq/L (3.5-4.5)
[2017-06-01] MEDS: Piperacillin/Tazobactam 3.375 GM in D5% in Water (Mini-Bag+) 100 ML IVPB SCH (05:10)
[2017-06-01] MEDS: *HR* Heparin 5,000 UNIT/ML VIAL SQ SCH ×2 (05:13→16:56)
[2017-06-01] MEDS: Doxycycline 100 MG CAPSULE PO SCH ×2 (08:16→21:06)
[2017-06-01] MEDS: Insulin LISPRO 300 UNITS/3 ML VIAL SQ SCH ×4 (08:17→21:11)
[2017-06-01 09:18] LABS: Hematocrit 25.5 % (37.5-50.1); Hemoglobin 7.7 g/dL (12.9-16.9); Mean Corpuscular HGB Conc 30.2 g/dL (31.6-35.5); Mean Corpuscular Hemoglobin 26.6 pg (28.0-33.3); Mean Corpuscular Volume 88.2 fL (83.0-100.0); Mean Platelet Volume 9.9 fL (9.4-12.4); Platelet Count 122 K/mcL (140-400); Red Blood Count 2.89 M/mcL (4.19-5.50); Red Cell Distribution Width 17.9 % (11.5-14.5)
[2017-06-01] MEDS ORDERED: 0.9 % Sodium Chloride 250 ML IVC PRN (09:29)
[2017-06-01] MEDS ORDERED: 0.9 % Sodium Chloride 250 ML ONE (11:30)
[2017-06-01] MEDS: Levofloxacin 750 MG/150 ML 750 MG/150 ML BAG IVPB SCH (11:33)
--- NOTE | 2017-06-01 12:08 | Nephrology Progress Note ---
Date of Encounter: 06/01/17 Time of Encounter: 12:03 - Assessment and Plan (1) Anemia Current Visit: Yes Status: Acute Monitor hemoglobin. Transfuse as needed. Hemoglobin stable. Started Aranesp. Qualifiers: Anemia type: due to chronic kidney disease Chronic kidney disease stage: unspecified stage Qualified Code(s): N18.9 - Chronic kidney disease, unspecified; D63.1 - Anemia in chronic kidney disease (2) Diabetic ulcer of foot associated with type 2 diabetes mellitus, with necrosis of bone Current Visit: Yes Status: Acute Per podiatry and vascular surgery. Monitor for improvement vs. need for amputation. Nonsurgical management for now. Will need rehab. Qualifiers: Diabetic foot ulcer location: heel Laterality: unspecified laterality Qualified Code(s): E11.621 - Type 2 diabetes mellitus with foot ulcer; L97.404 - Non-pressure chronic ulcer of unspecified heel and midfoot with necrosis of bone (3) ESRD (end stage renal disease) on dialysis Current Visit: Yes Status: Chronic HD scheduled MWF. He is only agreeable to twice weekly dialysis. No uremic symptoms. Unsuccessful cannulation of his fistula. He is refusing fistulogram and wants to be discharge to see if his outpatient nurses can cannulate. (4) Diabetes mellitus Current Visit: Yes Status: Chronic Per primary team. Qualifiers: Diabetes mellitus type: type 2 Diabetes mellitus complication status: with kidney complications Diabetes mellitus terminal makeup operator insulin use: without longterm use Chronic kidney disease stage: on chronic dialysis Qualified Code(s) : E11.22 - Type 2 diabetes mellitus with diabetic chronic kidney disease; N18.6 - End stage renal disease; Z99.2 - Dependence on renal dialysis Subjective Principal diagnosis: osteomyelitits, ESRD on dialysis Interval history: Mr. Chan is a 62 yo man with a history of ESRD who is here for management of bilateral heel wounds. He was seen in dialysis. He has no new complaints. The nurses are having trouble accessing his fistula. Objective - Vital Signs Vital signs: Vital Signs Temp Pulse Resp BP Pulse Ox 06/01/17 06:34 97.5 F L 69 16 149/73 100 06/01/17 03:40 98.4 F 68 17 120/59 97 06/01/17 00:14 98.3 F 72 17 98/52 97 05/31/17 23:20 98.3 F 72 17 98/52 97 07/16/17 20:20 97.9 F 76 17 125/71 98 05/31/17 16:47 97.7 F 75 16 138/67 99 Intake and Output 05/31/17 06/01/17 06/01/17 23:59 07:59 15:59 Intake Total 100 / 100 240 / 240 Output Total 50 / 50 Balance 50 / 50 240 / 240 Intake: IV Fluids 100 / 100 Zosyn 3.375 GM In 100 / 100 Dextrose 5% (Minibag+) 100 ML 100 ML @ 25 mls/hr IVPB Q12HR B[facility] Rx#: [id number] Oral 240 / 240 Output: Urine 50 / 50 Other: Meal Breakfast Percent of Meal Consumed 50% Stool Size Moderate Stool Consistency liquid soft Stool Color Brown # Bowel Movements 1 Weight 87 kg Blood Glucose* 112 120 141 Patient Weight 06/01/17 23:59 Weight 87 kg - General Appearance General appearance: Present: well-developed, well-nourished EENT: Present: ATNC Additional Comments: respirations are unlabored. Cardiology: Present: edema, regular rate Dialysis Vascular Access: Arteriovenous Fistula Neurologic: Present: alert and oriented x3 Psychiatric: Present: mood/affect appropriate - Lab 06/01/17 08:31 06/01/17 03:47 Most recent lab results ABG pH 7.61 pH Units (7.32-7.45) H* 05/25/17 20:18 ABG pCO2 35 mmHg (35-45) 05/25/17 20:18 ABG pO2 86 mmHg (85-104) 05/25/17 20:18 ABG HCO3 35.2 mEQ/L (21-27) H 05/25/17 20:18 ABG O2 Saturation 98 % (95-98) 05/25/17 20:18 Calcium 7.6 mg/dL (8.6-10.8) L 06/01/17 03:47 Phosphorus 3.6 mg/dL (2.3-4.7) 05/26/17 04:37 Magnesium 1.4 mg/dL (1.6-2.6) L 05/26/17 04:37 Consult Discharge Plan - Plan Referrals: Jarad Galeana MD [Primary Care Provider] - 06/02/17 10:00 am
[2017-06-01 14:29] LABS: Bilirubin,Urine Negative (Negative); Blood,Urine Large (Negative); Clarity,Urine Clear (Clear); Color,Urine Yellow (Yellow); Glucose,Urine (UA) 100 mg/dL (Normal); Ketones,Urine Negative (Negative); Leukocyte Esterase,Urine Negative (Negative); Nitrite,Urine Negative (Negative); PH,Urine 7.5 pH Units (5.0-8.0); Protein,Urine >=300 mg/dL (Neg-Trace); Specific Gravity,Urine 1.015 (1.010-1.025); Urobilinogen,Urine Normal (Normal)
[2017-06-01] MEDS ORDERED: 0.9 % Sodium Chloride 2,000 ML ONE (14:42)
[2017-06-01 14:43] LABS: RBC,Urine 30-50 per hpf (0-3); Squamous Epithelial Cell,Urine Few per lpf (None-Few); WBC,Urine 0-3 per hpf (0-3)
[2017-06-01 14:44] LABS: Bacteria,Urine Few per hpf (None-Few); Sperm,Urine Present
--- NOTE | 2017-06-01 15:04 | Discharge Summary ---
<Isael Eason - Last Filed: 06/01/17 17:24> Date of Encounter: 06/01/17 Time of Encounter: 08:45 - Discharge Diagnosis (1) Diabetic ulcer of foot associated with type 2 diabetes mellitus, with necrosis of bone Priority: Primary Status: Acute Comments: Patient has bilateral nonhealing necrotic heel ulcers, most likely complication of diabetes. -Wound cultures were obtained, and her stentotrophomonas and Corynebacterium. Patient is on Levaquin and doxycycline. -Doxycycline was prescribed to patient before admission secondary to the results of a bone biopsy. -Patient will not receive any surgical intervention. -Patient will be referred to inpatient rehabilitation. -Recommend changing patient's wound dressings twice a day. Qualifiers: Diabetic foot ulcer location: heel Laterality: unspecified laterality Qualified Code(s): E11.621 - Type 2 diabetes mellitus with foot ulcer; L97.404 - Non-pressure chronic ulcer of unspecified heel and midfoot with necrosis of bone (2) Osteomyelitis Priority: Secondary Status: Acute Comments: Findings on x-ray of patient's repeat are consistent with osteomyelitis in the left big toe. -Wound cultures were obtained, and her Corynebacterium and stenotrophomonas. -Patient was started on levofloxacin. -Patient has also been prescribed doxycycline prior to his admission per the results of a bone biopsy, which has been restarted. -No surgical intervention planned, continue wound dressing. Qualifiers: Osteomyelitis type: unspecified type Osteomyelitis location: foot Laterality: left Qualified Code(s): M86.9 - Osteomyelitis, unspecified (3) Anemia Priority: Secondary Status: Acute Comments: Patient has anemia secondary to his chronic immune disease. -Hemoglobin was 6.9 this morning. -Patient was given 1 unit of blood this morning. Qualifiers: Anemia type: due to chronic kidney disease Chronic kidney disease stage: unspecified stage Qualified Code(s): N18.9 - Chronic kidney disease, unspecified; D63.1 - Anemia in chronic kidney disease (4) ESRD (end stage renal disease) on dialysis Priority: Secondary Status: Chronic Comments: Patient's creatinine this morning was 7.6. -Patient refused dialysis this morning. -Patient has sporadically refused dialysis appointments. (5) Hypokalemia Priority: Secondary Status: Resolved Comments: Patient had low potassium during his initial few days in the hospital. -Hypokalemia has since resolved. -Potassium was 4.5 this morning - Discharge Medications Home Medications: Doxycycline [Doxycycline] 100 mg PO BID 05/25/17 [History] Lidocaine/Prilocaine [Emla] 1 appl TP AD PRN 05/25/17 [History] Allergies/Adverse Reactions: Allergies vancomycin Adverse Reaction (Verified 05/26/17 14:42) See Comments SARAH/Red Man Syndrome Date of admission: 05/25/17 22:12 Primary care physician: Jarad Galeana Consults: 05/25/17 23:13 Consult to Pillowcase Sewer [CONS] Routine Reason for SW Consult: lives at home alone 05/26/17 12:03 Consult to Physical Therapy [CONS] Routine Comment: Evaluate, develop and implement POC Reason for Consult: Patient states quite weak; poss rehab at discharge 05/26/17 12:04 Consult to Occupational Therapy [CONS] Routine Comment: Evaluate, develop and implement POC Reason for Consult: Possible rehab at discharge 05/27/17 12:45 Consult to Dialysis [CONS] ONCE 05/28/17 12:08 Consult to Vascular Surgery [CONS] Stat Consulting Provider: Vascular Surgery Jovita Reason for Consult: Severe PAD, evaluate for revascularization Call Completed: Yes 05/29/17 08:45 Consult to Dialysis [CONS] ONCE 06/01/17 09:30 Consult to Dialysis [CONS] ONCE Discharging clinician: Isael Eason Anticipated date of discharge: 06/01/17 - Patient Status Disposition: Transfer Inpatient Rehab Fac Condition: Good Functional capacity at discharge: wheelchair bound Overall status at discharge: patient is progressing back to baseline - Discharge Instructions Follow Up With: Jarad Galeana MD [Primary Care Provider] - 06/02/17 10:00 am - Diet and Activity Activity: as per physical therapy Diet: diabetic diet Hospital course: Mr. Chan is a 62 year old male who initially presented to the hospital with the chief complaint of foul-smelling discharge from ulcers on both of his feet. Patient has bilateral chronic, nonhealing ulcers on his heels. These ulcers are most likely related to his diabetes. Patient was told that he had osteomyelitis, and that he might need an amputation for his left great toe. Patient was given an x-ray of his left foot, which revealed signs of osteomyelitis in the left great toe. Initially, patient was placed on vancomycin and Zosyn. Patient was seen by infectious disease, who recommended that the antibiotics should be discontinued, since the patient showed no signs of systemic infection. On 05/28/17, arterial study was performed on patient's legs. Results were consistent with mild arterial disease. During his stay in the hospital, patient was anemic. He received multiple blood transfusions. Due to his chronic kidney disease, his baseline hemoglobin was approximately 8, but his hemoglobin routinely fell below 7. Patient also required dialysis while in the hospital. Patient refused several dialysis treatments, because he stated that he did not like the way they performed the procedure. Blood cultures were obtained on this patient, which turned up negative. Preliminary wound cultures obtained revealed gram-positive rods. Final wound culture was positive for stentotrophomonas, sensitive to Bactrim and levofloxacin. Patient was placed on levofloxacin. He was also given the doxycycline that he was originally prescribed for his admission. This doxycycline was prescribed secondary to a bone biopsy that was performed before his admission to the hospital. At discharge, patient's condition is stable. The wounds on his feet have been wrapped and cleaned on a regular basis. Patient will need physical therapy. Patient has expressed interest in an electric wheelchair. He wants to avoid amputation if possible. - Time Spent with Patient Total time spent providing and/or coordinating discharge services: Greater than 30 minutes - Constitutional Vitals: Temp Pulse Resp BP Pulse Ox 97.8 F 67 16 133/68 98 06/01/17 13:08 06/01/17 13:08 06/01/17 13:08 06/01/17 13:08 06/01/17 12:53 General appearance: Present: pleasant, no acute distress - Head Head exam: Present: atraumatic, normocephalic - Neck Neck exam general surgery: Present: trachea midline. Absent: lymphadenopathy - Respiratory Respiratory exam: Present: CTAB. Absent: rales, respiratory distress, rhonchi, stridor, wheezes, tachypnea - Cardiovascular Cardiovascular exam: Present: RRR, +S1, +S2. Absent: diastolic murmur, gallop, rubs, systolic murmur - GI/Abdominal GI/Abdominal exam: Present: normal bowel sounds, soft, no peritoneal signs. Absent: distended, tenderness - Extremities Exam Additional comments: Chronic, bilateral heel ulcers. - Skin Skin exam: Present: dry, intact <Ishola,Nii T - Last Filed: 06/01/17 17:32> Date of Encounter: 06/01/17 - Discharge Diagnosis (1) Diabetic ulcer of foot associated with type 2 diabetes mellitus, with necrosis of bone Status: Acute Qualifiers: Diabetic foot ulcer location: heel Laterality: unspecified laterality Qualified Code(s): E11.621 - Type 2 diabetes mellitus with foot ulcer; L97.404 - Non-pressure chronic ulcer of unspecified heel and midfoot with necrosis of bone (2) Osteomyelitis Status: Acute Qualifiers: Osteomyelitis type: unspecified type Osteomyelitis location: foot Laterality: left Qualified Code(s): M86.9 - Osteomyelitis, unspecified (3) ESRD (end stage renal disease) on dialysis Status: Chronic (4) CAD (coronary artery disease) Status: Chronic Qualifiers: Coronary Disease-Associated Artery/Lesion type: bypass graft [place] vs. transplanted heart: [place] heart Associated angina: without angina Qualified Code(s): I25.810 - Atherosclerosis of coronary artery bypass graft(s) without angina pectoris (5) Anemia Status: Acute Qualifiers: Anemia type: due to chronic kidney disease Chronic kidney disease stage: unspecified stage Qualified Code(s): N18.9 - Chronic kidney disease, unspecified; D63.1 - Anemia in chronic kidney disease (6) Diabetes mellitus Status: Chronic Qualifiers: Diabetes mellitus type: type 2 Diabetes mellitus complication status: with kidney complications Diabetes mellitus fci insulin use: without fci use Chronic kidney disease stage: on chronic dialysis Qualified Code(s) : E11.22 - Type 2 diabetes mellitus with diabetic chronic kidney disease; N18.6 - End stage renal disease; Z99.2 - Dependence on renal dialysis Date of admission: 05/25/17 22:12 Primary care physician: Jarad Galeana Consults: 05/25/17 23:13 Consult to Pill[facility]case [facility]er [CONS] Routine Reason for SW Consult: lives at home alone 05/26/17 12:03 Consult to Physical Therapy [CONS] Routine Comment: Evaluate, develop and implement POC Reason for Consult: Patient states quite weak; poss rehab at discharge 05/26/17 12:04 Consult to Occupational Therapy [CONS] Routine Comment: Evaluate, develop and implement POC Reason for Consult: Possible rehab at discharge 05/27/17 12:45 Consult to Dialysis [CONS] ONCE 05/28/17 12:08 Consult to Vascular Surgery [CONS] Stat Consulting Provider: Vascular Surgery Jovita Reason for Consult: Severe PAD, evaluate for revascularization Call Completed: Yes 05/29/17 08:45 Consult to Dialysis [CONS] ONCE 06/01/17 09:30 Consult to Dialysis [CONS] ONCE Hospital course: Mr. Chan is a 62 year old male - Time Spent with Patient Total time spent providing and/or coordinating discharge services: - Constitutional Vitals: Temp Pulse Resp BP Pulse Ox 97.5 F L 68 18 146/77 100 06/01/17 16:48 06/01/17 16:48 06/01/17 16:48 06/01/17 16:48 06/01/17 16:48 - Attending Attestation I examined this patient and my medical decision-making was reviewed with the Resident Physician on 06/01/17. I agree with the documented findings, disposition and treatment plan as described except to the extent set forth below. Seen and evaluated at the bedside Mr. Chan has a PMH of ESRD on HD, not compliant with HD or medications, DM with chronic DM foot ulcers, PAD, CAD, chronic anemia on EPO He was admitted and being managed for left toe OM, and necrotic bilateral heel ulcers as well as left toe open wound infection. He is stable to be transferred to SNF today Of note, he refused hemodialysis or evaluation of his fistula today, he received a total of 3 units of blood due to anemia. Continue wound dressings, antibiotics and follow up with his chief creative officer and vice president of customer service. Rest of details as in resident's documentation
--- NOTE | 2017-06-01 16:39 | Physician Discharge Referral ---
ExtendedCare Referral Info Transfer To: ECF Provider in Charge: Isael Eason Provider in Charge after Transfer: PCP Institutional Level of Care: Skilled - Diagnosis (1) Diabetic ulcer of foot associated with type 2 diabetes mellitus, with necrosis of bone Priority: Primary Status: Acute (2) Osteomyelitis Priority: Secondary Status: Acute (3) Anemia Priority: Secondary Status: Acute (4) ESRD (end stage renal disease) on dialysis Priority: Secondary Status: Chronic (5) Hypokalemia Priority: Secondary Status: Resolved - Transfer Medications Home Medications: Doxycycline [Doxycycline] 100 mg PO BID 05/25/17 [History] Lidocaine/Prilocaine [Emla] 1 appl TP AD PRN 05/25/17 [History] Allergies/Adverse Reactions: Allergies vancomycin Adverse Reaction (Verified 05/26/17 14:42) See Comments SARAH/Red Man Syndrome - Respiratory Orders Smoking Cessation: Smoking cessation has been advised. For more information, call the [employer] Quit Line at 7-796-QNPR-NOW. - Treatments List/Other: Cleanse soap and water all wounds, apply Santyl clinical thick to all wounds cover with saline moist 4 x 4 dry 4 x 4 and Kerlix twice a day. We must use offloading techniques to float heels and protect skin with Medix boots - Diet Orders No Concentrated Sweets, Renal CERTIFICATION: I certify that the transfer of the above named patient to an Extended Care Facility is necessary for the continuing treatment of the diagnosis listed. The above information is true and accurate reflection of patient's current condition. Confidential - Redisclosure prohibited without a patient's written consent.
[2017-06-01] MEDS: Insulin DETEMIR 100 UNIT/ML X5UNITS SQ SCH (21:10)
[2017-06-02] MEDS: *HR* Heparin 5,000 UNIT/ML VIAL SQ SCH (06:37)
[2017-06-02] MEDS: Doxycycline 100 MG CAPSULE PO SCH (08:29)
[2017-06-02] MEDS: Insulin LISPRO 300 UNITS/3 ML VIAL SQ SCH ×2 (08:30→11:47)
--- NOTE | 2017-06-02 09:07 | Nephrology Progress Note ---
Date of Encounter: 06/02/17 Time of Encounter: 09:05 - Assessment and Plan (1) ESRD (end stage renal disease) on dialysis Current Visit: Yes Status: Chronic HD today--patient refuses; trouble in acute HD with cannulation of his fistula Continue renal diet Waiting on ECF placement (2) Osteomyelitis Current Visit: Yes Status: Acute per podiatry and vascular surgery Nonsurgical management for now; watch for need for amputation Qualifiers: Osteomyelitis type: unspecified type Osteomyelitis location: foot Laterality: left Qualified Code(s): M86.9 - Osteomyelitis, unspecified Subjective Principal diagnosis: osteomyelitits, ESRD on dialysis Interval history: Patient seen and examined. Refuses dialysis today Objective - Vital Signs Vital signs: Vital Signs Temp Pulse Resp BP Pulse Ox 06/02/17 07:45 97.5 F L 77 20 157/78 98 06/02/17 04:11 97.9 F 80 17 137/73 97 06/01/17 23:54 97.9 F 71 16 136/69 99 06/01/17 18:30 98.3 F 70 16 121/67 98 06/01/17 16:48 97.5 F L 68 18 146/77 100 06/01/17 15:36 98.3 F 16 138/76 06/01/17 13:08 97.8 F 67 16 133/68 06/01/17 12:53 97.7 F 68 16 118/66 98 06/01/17 11:10 98.1 F 16 130/91 06/01/17 11:05 130/91 06/01/17 10:30 98.1 F 16 139/70 Intake and Output 06/01/17 06/02/17 06/02/17 23:59 07:59 15:59 Intake Total 100 / 100 Output Total 100 / 100 Balance 0 / 0 Intake: Oral 100 / 100 Blood Product 0 / 0 Rbcs Leuko Poor As-3 Ph 0 / 0 Unit [id number] Output: Urine 100 / 100 Other: Meal Dinner Percent of Meal Consumed 95% Stool Size Small Stool Consistency liquid soft Stool Color Brown # Bowel Movements 1 Weight 84.7 kg Blood Glucose* 175 111 Patient Weight 06/02/17 23:59 Weight 84.7 kg - General Appearance General appearance: Present: chronically ill EENT: Present: ATNC, mucous membranes moist, hearing intact, vision intact Neck: Present: supple Respiratory: Present: clear Cardiology: Present: edema, normal S1, normal S2 Dialysis Vascular Access: Arteriovenous Fistula Gastrointestinal: Present: no tenderness, no guarding Integumentary: Present: warm and dry Neurologic: Present: alert and oriented x3 Psychiatric: Present: mood/affect appropriate, cooperative - Lab 06/01/17 08:31 06/01/17 03:47 Most recent lab results ABG pH 7.61 pH Units (7.32-7.45) H* 05/25/17 20:18 ABG pCO2 35 mmHg (35-45) 05/25/17 20:18 ABG pO2 86 mmHg (85-104) 05/25/17 20:18 ABG HCO3 35.2 mEQ/L (21-27) H 05/25/17 20:18 ABG O2 Saturation 98 % (95-98) 05/25/17 20:18 Calcium 7.6 mg/dL (8.6-10.8) L 06/01/17 03:47 Phosphorus 3.6 mg/dL (2.3-4.7) 05/26/17 04:37 Magnesium 1.4 mg/dL (1.6-2.6) L 05/26/17 04:37 Consult Discharge Plan - Plan Referrals: Jarad Galeana MD [Primary Care Provider] - 06/02/17 10:00 am
[2017-06-02 11:41] VITALS: BP 161/78
[2017-06-03] MEDS ORDERED: levoFLOXacin 750 MG TABLET PO SCH (12:00)
== END 2017-06-02 13:58 | DRG 638 ==
LOC: EMEROO 16:35 → 2ANU 16:35 → SUATTDRO 22:12 → 2ANU 22:40
PROVIDERS: ADMIT Hospitalist; ATTEND Internal Medicine